=== PATIENT | male | born 1940 | race Caucasian/White ===

== ENCOUNTER → 2016-09-10 | Outpatient (CLI) | payer MEDICARE ==
[~2016-09-10] MED LIST: /HALO5TAB OR; /WARF3TA OR; /WARF5TA; /WARF5TA OR; /WARF5TA PO; ALTA5CAP; ALTA5CAP OR; ASPI81TA85 PO; ATEN50TA2 OR; BABY81CH; COLA100C2; GLUC500T; GLUC500T OR; LASI40TA; LASI40TA OR; MULTCAP PO; MVI PO; PERP4TAB6 PO; POTA10CA2 OR; POTA20TA; PRIL20CA; PRIL20CA OR; RISP3TAB18 PO; RISP4TAB33 PO; TENO50TA; THERGRAN; TRAZ50TA4 PO; WARF5TAB66 PO; WARF6TAB14 PO; coumadin
[2016-09-10 15:08] LABS: MEAN CORPUSCULAR HEMOGLOBIN 29.8 pg (27.0-33.0); MEAN CORPUSCULAR HGB CONC 33.1 g/dl (32.0-36.5)
[2016-09-10 15:19] LABS: ALBUMIN 3.6 GM/DL (3.2-5.2); CREATININE FOR GFR 1.39 MG/DL (0.70-1.30); GLOMERULAR FILTRATION RATE 53.2 (>42); MAGNESIUM LEVEL 1.6 MG/DL (1.8-2.4); PHOSPHORUS LEVEL 2.7 MG/DL (2.5-4.9); POTASSIUM SERUM 4.5 MEQ/L (3.5-5.1)
== END ==
LOC: M WUC 13:10
PROVIDERS: ATTEND Physician Assistant
DX: I50.32 Chronic diastolic (congestive) heart failure (principal); I48.3 Typical atrial flutter; I48.0 Paroxysmal atrial fibrillation; Z51.81 Encounter for therapeutic drug level monitoring; Z79.01 Long term (current) use of anticoagulants

== ENCOUNTER → 2016-09-10 | Outpatient (CLI) | payer MEDICARE ==
[2016-09-10 15:15] LABS: INR 1.75
== END ==
LOC: M WUC 13:06
PROVIDERS: ATTEND Internal Medicine Cardiovascular Disease
DX: I48.91 Unspecified atrial fibrillation (principal); Z51.81 Encounter for therapeutic drug level monitoring; Z79.01 Long term (current) use of anticoagulants

== ENCOUNTER → 2016-09-24 | Outpatient (CLI) | payer MEDICARE ==
[2016-09-24 19:10] LABS: INR 2.16
== END ==
LOC: M WUC 13:20
PROVIDERS: ATTEND Internal Medicine Cardiovascular Disease
DX: I48.91 Unspecified atrial fibrillation (principal); I48.92 Unspecified atrial flutter

== ENCOUNTER → 2016-10-25 | Outpatient (CLI) | payer MEDICARE ==
[2016-10-25 18:24] LABS: INR 2.34
== END ==
LOC: M WUC 16:00
PROVIDERS: ATTEND Nurse Practitioner Family
DX: I48.91 Unspecified atrial fibrillation (principal); I48.92 Unspecified atrial flutter

== ENCOUNTER → 2016-11-30 | Outpatient (CLI) | payer MEDICARE | LOC: M WUC 12:25 | PROVIDERS: ATTEND Nurse Practitioner Family | DX: I48.91 Unspecified atrial fibrillation (principal); I48.92 Unspecified atrial flutter ==

== ENCOUNTER → 2016-12-31 | Outpatient (CLI) | payer MEDICARE ==
[2016-12-31 16:50] LABS: INR 2.28
== END ==
LOC: M WUC 12:49
PROVIDERS: ATTEND Nurse Practitioner Family
DX: I48.91 Unspecified atrial fibrillation (principal); I48.92 Unspecified atrial flutter

== ENCOUNTER → 2017-01-29 | Outpatient (CLI) | payer MEDICARE ==
[2017-01-29 17:16] LABS: INR 1.94
== END ==
LOC: M WUC 14:18
PROVIDERS: ATTEND Nurse Practitioner Family
DX: I48.91 Unspecified atrial fibrillation (principal); I48.92 Unspecified atrial flutter

== ENCOUNTER 2017-01-31 15:41 | Emergency (ER) | payer MEDICARE ==
[~2017-01-31] VITALS: Ht 180.3 cm; Wt 109.9 kg
[~2017-01-31 15:41] MED LIST changes: -RISP3TAB18 PO; +RISP3TAB20 PO; +TRAZ50TA11 PO; -TRAZ50TA4 PO
[2017-01-31] MEDS ORDERED: IPRATROPIUM 0.5MG/ALBUTEROL 2.5MG INH SOL UD 3ML (DUONEB)(J7620) NEB PRN (16:45)
[2017-01-31 17:05] LABS: BASO % 0.6 % (0.0-1.0); EOS # 0.2 K/mm3 (0.0-0.50); EOS % 2.8 % (0.0-3.0); LARGE UNSTAINED CELL # 0.2 K/mm3 (0.0-0.4); LARGE UNSTAINED CELL % 2.5 % (0.0-4.0); LYMPH # 1.7 K/mm3 (1.5-4.5); MEAN CORPUSCULAR HEMOGLOBIN 30.6 pg (27.0-33.0); MEAN CORPUSCULAR HGB CONC 33.7 g/dl (32.0-36.5); MEAN CORPUSCULAR VOLUME 90.8 fl (80.0-96.0); MONO # 0.6 K/mm3 (0.0-0.8); NEUTROPHILS # 5.2 K/mm3 (1.8-7.7); NEUTROPHILS % 65.1 % (36.0-66.0); PLATELET COUNT, AUTOMATED 228 k/mm3 (150-450); RED CELL DISTRIBUTION WIDTH 12.5 % (11.5-14.5)
[2017-01-31 17:22] LABS: INR 2.73
[2017-01-31 17:30] LABS: ALBUMIN 2.9 GM/DL (3.2-5.2); ALBUMIN/GLOBULIN RATIO 0.64 (1.00-1.93); ALKALINE PHOSPHATASE 67 U/L (45-117); ALT/SGPT 22 U/L (12-78); ANION GAP 3 MEQ/L (8-16); AST/SGOT 11 U/L (15-37); BILIRUBIN,DIRECT 0.1 MG/DL (0.0-0.2); BILIRUBIN,TOTAL 0.5 MG/DL (0.2-1.0); BLOOD UREA NITROGEN 19 MG/DL (7-18); CALCIUM LEVEL 9.1 MG/DL (8.8-10.2); CARBON DIOXIDE LEVEL 28 MEQ/L (21-32); CHLORIDE LEVEL 109 MEQ/L (98-107); CREATININE FOR GFR 1.16 MG/DL (0.70-1.30); GLOMERULAR FILTRATION RATE > 60.0 (>42); GLUCOSE, FASTING 194 MG/DL (83-110); POTASSIUM SERUM 4.3 MEQ/L (3.5-5.1); SODIUM LEVEL 140 MEQ/L (136-145); TOTAL PROTEIN 7.4 GM/DL (6.4-8.2)
[2017-01-31] MEDS ORDERED: FUROSEMIDE 40 MG/4 ML VIAL (J1940) IV ONE (18:00)
[2017-01-31 19:43] VITALS: BP 138/78
--- NOTE | 2017-02-01 07:54 | REP ---
CHEST X-RAY: Two views. HISTORY: Dyspnea and cough. Comparison chest x-ray: June 29, 2010. FINDINGS: The patient is status post prior median sternotomy. There is a zone of linear opacity in the right base consistent with plate-like atelectasis. The pleural angles are sharp. No pleural effusion is seen. Pulmonary vasculature is cephalized. Heart is mildly prominent. IMPRESSION: Mild cardiomegaly. Right base plate-like atelectasis. Prior sternotomy. Signed by Rustam Barclay MD 02/01/2017 08:29 A
--- NOTE | 2017-02-02 08:55 | ECGEPIP ---
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
== END 2017-01-31 19:45 | disposition home or self-care (01) ==
LOC: M ED 17:01
DX: J20.9 Acute bronchitis, unspecified (principal); I50.32 Chronic diastolic (congestive) heart failure; R06.02 Shortness of breath; I51.7 Cardiomegaly; I48.91 Unspecified atrial fibrillation; E11.9 Type 2 diabetes mellitus without complications; Z95.2 Presence of prosthetic heart valve; Z79.82 Long term (current) use of aspirin; Z79.899 Other long term (current) drug therapy
CPT/HCPCS: 36415; 71020; 80048; 80076; 82550; 82553; 83605; 83880; 84443; 84484; 85025; 85610; 86140; 87040; 87486; 87581; 87633; 87798; 93005; 93041; 94760; 96374; 99284; J1940

== ENCOUNTER → 2017-02-25 | Outpatient (CLI) | payer MEDICARE ==
[2017-02-25 17:13] LABS: INR 3.78
== END ==
LOC: M WUC 15:08
PROVIDERS: ATTEND Nurse Practitioner Family
DX: I48.91 Unspecified atrial fibrillation (principal); I48.92 Unspecified atrial flutter

== ENCOUNTER → 2017-03-04 | Outpatient (CLI) | payer MEDICARE ==
[2017-03-04 19:49] LABS: MEAN CORPUSCULAR HEMOGLOBIN 29.9 pg (27.0-33.0); MEAN CORPUSCULAR HGB CONC 32.8 g/dl (32.0-36.5); MEAN CORPUSCULAR VOLUME 91.3 fl (80.0-96.0); RED CELL DISTRIBUTION WIDTH 12.7 % (11.5-14.5)
[2017-03-04 19:52] LABS: INR 2.63
[2017-03-04 21:11] LABS: ALBUMIN/GLOBULIN RATIO 0.77 (1.00-1.93); ALKALINE PHOSPHATASE 86 U/L (45-117); ALT/SGPT 19 U/L (12-78); ANION GAP 11 MEQ/L (8-16); AST/SGOT 10 U/L (15-37); BILIRUBIN,TOTAL 0.6 MG/DL (0.2-1.0); BLOOD UREA NITROGEN 22 MG/DL (7-18); CARBON DIOXIDE LEVEL 26 MEQ/L (21-32); CHLORIDE LEVEL 100 MEQ/L (98-107); CHOLESTEROL LEVEL 106 MG/DL (<200); CREATININE FOR GFR 1.17 MG/DL (0.70-1.30); GLOMERULAR FILTRATION RATE > 60.0 (>42); GLUCOSE, FASTING 209 MG/DL (83-110); MAGNESIUM LEVEL 1.8 MG/DL (1.8-2.4); POTASSIUM SERUM 4.2 MEQ/L (3.5-5.1); SODIUM LEVEL 137 MEQ/L (136-145); TOTAL PROTEIN 6.9 GM/DL (6.4-8.2); TRIGLYCERIDES LEVEL 155 MG/DL (<150)
== END ==
LOC: M WUC 15:27
PROVIDERS: ATTEND Physician Assistant
DX: I48.2 Chronic atrial fibrillation (principal); I50.32 Chronic diastolic (congestive) heart failure; E78.2 Mixed hyperlipidemia; I25.10 Atherosclerotic heart disease of native coronary artery without angina pectoris; I48.92 Unspecified atrial flutter

== ENCOUNTER → 2017-03-25 | Outpatient (CLI) | payer MEDICARE ==
[2017-03-25 17:25] LABS: INR 2.74
== END ==
LOC: M WUC 13:01
PROVIDERS: ATTEND Physician Assistant
DX: I48.91 Unspecified atrial fibrillation (principal); I48.92 Unspecified atrial flutter

== ENCOUNTER → 2017-04-26 | Outpatient (CLI) | payer MEDICARE ==
[2017-04-26 17:32] LABS: INR 2.42
== END ==
LOC: M WUC 13:52
PROVIDERS: ATTEND Physician Assistant
DX: I48.91 Unspecified atrial fibrillation (principal); I48.92 Unspecified atrial flutter

== ENCOUNTER → 2017-05-26 | Outpatient (CLI) | payer MEDICARE ==
[2017-05-26 18:38] LABS: INR 1.43
== END ==
LOC: M WUC 12:33
PROVIDERS: ATTEND Nurse Practitioner Family
DX: I48.91 Unspecified atrial fibrillation (principal); I48.92 Unspecified atrial flutter

== ENCOUNTER → 2017-06-24 | Outpatient (CLI) | payer MEDICARE ==
[2017-06-24 16:28] LABS: INR 2.06
== END ==
LOC: M WUC 13:15
PROVIDERS: ATTEND Physician Assistant
DX: I48.91 Unspecified atrial fibrillation (principal)

== ENCOUNTER → 2017-07-29 | Outpatient (CLI) | payer MEDICARE ==
[2017-07-29 17:15] LABS: INR 1.86
== END ==
LOC: M WUC 13:59
PROVIDERS: ATTEND Physician Assistant
DX: I48.91 Unspecified atrial fibrillation (principal)

== ENCOUNTER → 2017-08-19 | Outpatient (CLI) | payer MEDICARE ==
[2017-08-19 19:45] LABS: PROTHROMBIN TIME 24.3 SECONDS (12.4-14.5)
== END ==
LOC: M WUC 15:36
DX: I48.91 Unspecified atrial fibrillation (principal); I48.92 Unspecified atrial flutter
CPT/HCPCS: 85610

== ENCOUNTER → 2017-09-20 | Outpatient (CLI) | payer MEDICARE ==
[2017-09-20 17:13] LABS: INR 1.83; PROTHROMBIN TIME 21.7 SECONDS (12.4-14.5)
== END ==
LOC: M WUC 13:48
DX: I48.91 Unspecified atrial fibrillation (principal); I48.92 Unspecified atrial flutter
CPT/HCPCS: 85610

== ENCOUNTER → 2017-10-06 | Outpatient (CLI) | payer MEDICARE ==
[2017-10-06 16:43] LABS: INR 2.52; PROTHROMBIN TIME 28.2 SECONDS (12.4-14.5)
== END ==
LOC: M WUC 13:36
DX: I48.91 Unspecified atrial fibrillation (principal); I48.92 Unspecified atrial flutter
CPT/HCPCS: 85610

== ENCOUNTER → 2017-11-03 | Outpatient (CLI) | payer MEDICARE ==
[2017-11-03 14:20] LABS: INR 2.16; PROTHROMBIN TIME 24.8 SECONDS (12.4-14.5)
== END ==
LOC: M WUC 12:20
DX: I48.91 Unspecified atrial fibrillation (principal)
CPT/HCPCS: 85610

== ENCOUNTER → 2017-12-02 | Outpatient (CLI) | payer MEDICARE ==
[2017-12-02 16:44] LABS: INR 3.32; PROTHROMBIN TIME 35.3 SECONDS (12.4-14.5)
== END ==
LOC: M WUC 14:25
DX: Z51.81 Encounter for therapeutic drug level monitoring (principal); Z79.01 Long term (current) use of anticoagulants; I48.91 Unspecified atrial fibrillation; I48.92 Unspecified atrial flutter
CPT/HCPCS: 85610

== ENCOUNTER → 2017-12-21 | Outpatient (CLI) | payer MEDICARE ==
[2017-12-21 16:44] LABS: INR 2.96; PROTHROMBIN TIME 32.1 SECONDS (12.4-14.5)
== END ==
LOC: M WUC 13:42
DX: Z51.81 Encounter for therapeutic drug level monitoring (principal); Z79.01 Long term (current) use of anticoagulants; I48.91 Unspecified atrial fibrillation; I48.92 Unspecified atrial flutter
CPT/HCPCS: 85610

== ENCOUNTER 2018-03-07 15:06 | Inpatient (IN) | payer MEDICARE ==
[2018-03-07] MEDS: NS 1,000 ML IV ×3 (16:11→17:30)
[2018-03-07 16:18] LABS: BASO # 0.1 10^3/uL (0.0-0.2); BASO % 0.9 % (0.0-1.0); EOS # 0.3 10^3/uL (0.0-0.50); EOS % 3.6 % (0.0-3.0); HEMATOCRIT 36.5 % (42.0-52.0); IMMATURE GRANULOCYTE % 0.7 % (0-3.0); LYMPH # 2.1 10^3/uL (1.5-4.5); LYMPH % 23.1 % (24.0-44.0); MEAN CORPUSCULAR HEMOGLOBIN 30.2 pg (27.0-33.0); MEAN CORPUSCULAR HGB CONC 32.9 g/dl (32.0-36.5); MEAN CORPUSCULAR VOLUME 91.9 fl (80.0-96.0); MONO # 1.1 10^3/uL (0.0-0.8); MONO % 11.7 % (0.0-5.0); NEUTROPHILS # 5.5 10^3/uL (1.8-7.7); PLATELET COUNT, AUTOMATED 221 10^3/uL (150-450); RED BLOOD COUNT 3.97 10^6/uL (4.30-6.10); RED CELL DISTRIBUTION WIDTH 12.9 % (11.5-14.5); WHITE BLOOD COUNT 9.1 10^3/uL (4.0-10.0)
[2018-03-07 16:22] LABS: INR 2.45; PROTHROMBIN TIME 27.1 SECONDS (12.1-14.4)
[2018-03-07 16:24] LABS: PARTIAL THROMBOPLASTIN TIME 57.9 SECONDS (25.4-37.6)
[2018-03-07 16:32] LABS: LACTIC ACID SEPSIS PROTOCOL 3.7 MMOL/L (0.4-2.0)
[2018-03-07 16:33] LABS: ALBUMIN/GLOBULIN RATIO 0.79 (1.00-1.93); ALKALINE PHOSPHATASE 73 U/L (45-117); ALT/SGPT 24 U/L (12-78); ANION GAP 11 MEQ/L (8-16); AST/SGOT 13 U/L (7-37); BILIRUBIN,DIRECT 0.2 MG/DL (0.0-0.2); BILIRUBIN,TOTAL 0.7 MG/DL (0.2-1.0); BLOOD UREA NITROGEN 35 MG/DL (7-18); CALCIUM LEVEL 9.1 MG/DL (8.8-10.2); CARBON DIOXIDE LEVEL 27 MEQ/L (21-32); CHLORIDE LEVEL 105 MEQ/L (98-107); CPK CREATINE PHOSPHOKINASE 121 U/L (39-308); CREATININE FOR GFR 1.39 MG/DL (0.70-1.30); GLUCOSE, FASTING 203 MG/DL (70-100); POTASSIUM SERUM 4.3 MEQ/L (3.5-5.1); SALICYLATE LEVEL < 1.7 MG/DL (5.0-30.0); SODIUM LEVEL 143 MEQ/L (136-145); TOTAL PROTEIN 6.8 GM/DL (6.4-8.2); TROPONIN I < 0.02 NG/ML (< 0.10)
[2018-03-07 16:35] LABS: AMMONIA 19 uMOL/L (<32)
[2018-03-07 16:39] LABS: CK-MB VALUE MASS < 1.0 NG/ML (<3.6); MB/CK RELATIVE INDEX 0.82 (< OR =4)
[2018-03-07 16:43] LABS: ACETAMINOPHEN LEVEL < 2.0 UG/ML (10.0-30.0); ETHYL ALCOHOL (ETHANOL) < 0.003 % (0.000-0.010)
[2018-03-07 17:17] LABS: BEDSIDE GLUCOSE 175 MG/DL (83-110)
[2018-03-07 17:39] LABS: KETONE, URINE AUTO RFX NEGATIVE (NEGATIVE); LEUKOCYTE ESTERASE UR AUTO RFX NEGATIVE (NEGATIVE); MUCUS, URINE RFX SMALL (NEGATIVE); NITRITE, URINE AUTO RFX NEGATIVE (NEGATIVE); RBC, URINE AUTO RFX 1 /HPF (0-3); SPECIFIC GRAVITY UR AUTO RFX 1.013 (1.002-1.035); SQUAM EPITHELIAL CELL UR AURFX 0 /HPF (0-6); WBC, URINE AUTO RFX 0 /HPF (0-3)
[2018-03-07 17:50] LABS: AMPHETAMINES LEVEL URINE NEGATIVE (NEGATIVE); BARBITURATES URINE NEGATIVE (NEGATIVE); BENZODIAZEPINES URINE NEGATIVE (NEGATIVE); CANNABINOIDS URINE NEGATIVE (NEGATIVE); COCAINE METABOLITE URINE NEGATIVE (NEGATIVE); METHADONE URINE NEGATIVE (NEGATIVE); OPIATES URINE NEGATIVE (NEGATIVE); PHENCYCLIDINE URINE NEGATIVE (NEGATIVE)
[2018-03-07] MEDS ORDERED: ONDANSETRON 4MG/2ML VIAL (J2405) IV (18:45)
[2018-03-07] MEDS ORDERED: GLUCOSE 4 GM CHEW TABLET PO (18:45)
[2018-03-07] MEDS ORDERED: GLUCAGON FOR INJ 1 MG VIAL (J1610) SC (18:45)
[2018-03-07] MEDS ORDERED: ACETAMINOPHEN TAB 650MG DOSE (2X325MG) PO (18:45)
[2018-03-07] MEDS ORDERED: DEXTROSE 50% 50 ML SYRINGE IV (18:45)
[2018-03-07 19:39] LABS: CK-MB VALUE MASS < 1.0 NG/ML (<3.6); CPK CREATINE PHOSPHOKINASE 101 U/L (39-308); MB/CK RELATIVE INDEX 0.99 (< OR =4); TROPONIN I < 0.02 NG/ML (< 0.10)
[2018-03-07] MEDS: FUROSEMIDE 40 MG/4 ML VIAL (J1940) IV (20:04)
[2018-03-07] MEDS: HumaLOG INSULIN (NovoLOG) PER UNIT SC (21:00)
[2018-03-07 21:31] LABS: CREATININE,RANDOM URINE 66.3 MG/DL
[2018-03-07] MEDS: SODIUM CHLORIDE 0.9% 1000 ML IV ×2 (22:43→23:40)
[2018-03-07 23:21] LABS: BEDSIDE GLUCOSE 200 MG/DL (83-110)
[2018-03-07] MEDS: traZODone 50 MG TAB PO (23:40)
[2018-03-08] MEDS: FUROSEMIDE 40 MG/4 ML VIAL (J1940) IV
[2018-03-08] MEDS: risperiDONE 3 MG TAB PO ×3 (00:24→21:22)
[2018-03-08 00:55] LABS: LACTIC ACID SEPSIS PROTOCOL 5.4 MMOL/L (0.4-2.0)
[2018-03-08] MEDS: SODIUM CHLORIDE 0.9% 1000 ML IV (01:41)
[2018-03-08 02:59] LABS: HEMATOCRIT 36.4 % (42.0-52.0); HEMOGLOBIN 11.7 g/dl (13.5-17.5); MEAN CORPUSCULAR HEMOGLOBIN 29.8 pg (27.0-33.0); MEAN CORPUSCULAR HGB CONC 32.1 g/dl (32.0-36.5); MEAN CORPUSCULAR VOLUME 92.6 fl (80.0-96.0); PLATELET COUNT, AUTOMATED 216 10^3/uL (150-450); RED BLOOD COUNT 3.93 10^6/uL (4.30-6.10); RED CELL DISTRIBUTION WIDTH 12.9 % (11.5-14.5); WHITE BLOOD COUNT 10.1 10^3/uL (4.0-10.0)
[2018-03-08 03:08] LABS: INR 2.36; PROTHROMBIN TIME 26.3 SECONDS (12.1-14.4)
[2018-03-08 03:30] LABS: ANION GAP 13 MEQ/L (8-16); BLOOD UREA NITROGEN 30 MG/DL (7-18); CALCIUM LEVEL 8.2 MG/DL (8.8-10.2); CARBON DIOXIDE LEVEL 25 MEQ/L (21-32); CHLORIDE LEVEL 105 MEQ/L (98-107); CPK CREATINE PHOSPHOKINASE 108 U/L (39-308); CREATININE FOR GFR 1.41 MG/DL (0.70-1.30); FREE THYROXINE INDEX 3.6 % (1.4-3.8); GLOMERULAR FILTRATION RATE 52.2 (>42); GLUCOSE, FASTING 215 MG/DL (70-100); POTASSIUM SERUM 3.7 MEQ/L (3.5-5.1); SODIUM LEVEL 143 MEQ/L (136-145); T UPTAKE 38 % (33-40); THYROXINE (T4) 9.5 UG/DL (4.5-12.0); TROPONIN I < 0.02 NG/ML (< 0.10)
[2018-03-08 03:35] LABS: CK-MB VALUE MASS 1.1 NG/ML (<3.6); MB/CK RELATIVE INDEX 1.01 (< OR =4)
[2018-03-08] MEDS ORDERED: HEPARIN SOD (PORCINE) 5000 UNITS/ML VIAL SC (06:00)
[2018-03-08 06:37] LABS: BEDSIDE GLUCOSE 216 MG/DL (83-110)
[2018-03-08] MEDS: DIGOXIN INJ 0.5 MG/2 ML AMP (J1160) IV (07:43)
[2018-03-08] MEDS: ATENOLOL 50 MG TAB PO (07:55)
[2018-03-08] MEDS: OMEPRAZOLE 20 MG CAP PO (08:09)
[2018-03-08] MEDS: ASPIRIN 81 MG ENTERIC TAB PO (08:09)
[2018-03-08] MEDS: MULTIVITAMINS/MINERALS THERAP 1 TAB PO (08:09)
[2018-03-08] MEDS: HumaLOG INSULIN (NovoLOG) PER UNIT SC ×4 (08:09→20:50)
[2018-03-08] MEDS: POTASSIUM CHLORIDE 10 MEQ SR TABLET PO (08:09)
[2018-03-08] MEDS ORDERED: ATENOLOL 50 MG TAB PO (09:00)
[2018-03-08 11:03] LABS: CPK CREATINE PHOSPHOKINASE 78 U/L (39-308); TROPONIN I < 0.02 NG/ML (< 0.10)
[2018-03-08 11:04] LABS: CK-MB VALUE MASS < 1.0 NG/ML (<3.6); MB/CK RELATIVE INDEX 1.28 (< OR =4)
[2018-03-08 11:28] LABS: BEDSIDE GLUCOSE 199 MG/DL (83-110)
[2018-03-08] MEDS ORDERED: diltiaZEM 125 MG in NS 100 ML IV (11:30)
[2018-03-08] MEDS: METOPROLOL TART 25 MG TABLET PO ×2 (11:53→17:17)
[2018-03-08] MEDS ORDERED: METOPROLOL TART 25 MG TABLET PO (12:00)
[2018-03-08 14:05] LABS: MAGNESIUM LEVEL 1.5 MG/DL (1.8-2.4)
[2018-03-08 14:31] LABS: ABG BASE EXCESS -0.4 (-2.0-2.0); ABG HCO3 23.5 MEQ/L (22.0-26.0); ABG O2 SATURATION 95.4 % (95.0-99.0); ABG PARTIAL PRESSURE CO2 35.7 mmHg (35.0-45.0); ABG PARTIAL PRESSURE O2 75.1 mmHg (75.0-100.0); ABG STANDARD HCO3 24.2 MEQ/L (22.0-26.0); ABG TOTAL CO2 24.6 MEQ/L (23.0-31.0); ABG pH (ARTERIAL) 7.436 UNITS (7.350-7.450)
[2018-03-08] MEDS: FUROSEMIDE 100 MG/10 ML VIAL (J1940) IV (14:48)
[2018-03-08 15:02] LABS: AMMONIA 11 uMOL/L (<32)
[2018-03-08 15:05] LABS: LACTIC ACID SEPSIS PROTOCOL 1.9 MMOL/L (0.4-2.0)
[2018-03-08] MEDS: MAG SULF 1GM/100ML (MAG RUN) 1 GM in APPROPRIATE DILUENT 1 EA IV ×2 (15:16→17:08)
[2018-03-08 17:05] LABS: BEDSIDE GLUCOSE 187 MG/DL (83-110)
[2018-03-08] MEDS: WARFARIN SOD 4 MG TAB PO (17:15)
[2018-03-08 18:00] LABS: POTASSIUM SERUM 3.7 MEQ/L (3.5-5.1)
[2018-03-08 18:00] LABS: MAGNESIUM LEVEL 2.3 MG/DL (1.8-2.4)
[2018-03-08] MEDS: KCL 10MEQ/100ML SWI (KRUN) 10 MEQ in APPROPRIATE DILUENT 1 EA IV ×3 (18:07→19:33)
[2018-03-08] MEDS ORDERED: PILL CRUSHER/CUTTER 1 EACH XX (19:30)
[2018-03-08 20:38] LABS: BEDSIDE GLUCOSE 229 MG/DL (83-110)
[2018-03-08] MEDS: traZODone 50 MG TAB PO (21:22)
[2018-03-09] MEDS: METOPROLOL TART 25 MG TABLET PO ×4 (00:42→18:01)
[2018-03-09 05:54] LABS: HEMATOCRIT 34.5 % (42.0-52.0); HEMOGLOBIN 11.1 g/dl (13.5-17.5); MEAN CORPUSCULAR HEMOGLOBIN 29.4 pg (27.0-33.0); MEAN CORPUSCULAR HGB CONC 32.2 g/dl (32.0-36.5); MEAN CORPUSCULAR VOLUME 91.5 fl (80.0-96.0); PLATELET COUNT, AUTOMATED 214 10^3/uL (150-450); RED BLOOD COUNT 3.77 10^6/uL (4.30-6.10); RED CELL DISTRIBUTION WIDTH 12.8 % (11.5-14.5); WHITE BLOOD COUNT 8.8 10^3/uL (4.0-10.0)
[2018-03-09 06:08] LABS: INR 2.41; PROTHROMBIN TIME 26.7 SECONDS (12.1-14.4)
[2018-03-09 06:31] LABS: ANION GAP 8 MEQ/L (8-16); BLOOD UREA NITROGEN 31 MG/DL (7-18); CALCIUM LEVEL 8.8 MG/DL (8.8-10.2); CARBON DIOXIDE LEVEL 29 MEQ/L (21-32); CHLORIDE LEVEL 108 MEQ/L (98-107); DIGOXIN LEVEL 0.6 NG/ML (0.5-2.0); GLUCOSE, FASTING 197 MG/DL (70-100); POTASSIUM SERUM 4.1 MEQ/L (3.5-5.1); SODIUM LEVEL 145 MEQ/L (136-145)
[2018-03-09 07:44] LABS: MAGNESIUM LEVEL 2.2 MG/DL (1.8-2.4)
[2018-03-09] MEDS: OMEPRAZOLE 20 MG CAP PO (09:20)
[2018-03-09] MEDS: MULTIVITAMINS/MINERALS THERAP 1 TAB PO (09:20)
[2018-03-09] MEDS: risperiDONE 3 MG TAB PO ×2 (09:20→20:08)
[2018-03-09] MEDS: ASPIRIN 81 MG ENTERIC TAB PO (09:20)
[2018-03-09] MEDS: HumaLOG INSULIN (NovoLOG) PER UNIT SC ×4 (09:20→20:08)
[2018-03-09] MEDS: POTASSIUM CHLORIDE 10 MEQ SR TABLET PO (09:48)
[2018-03-09 11:57] LABS: BEDSIDE GLUCOSE 287 MG/DL (83-110)
[2018-03-09] MEDS: VANCOMYCIN HCL 1,000 MG, VIAL MATE ADAPTER 1 EACH in D5W 250 ML IV (12:01)
[2018-03-09] MEDS: FUROSEMIDE 40 MG/4 ML VIAL (J1940) IV ×2 (12:01→18:00)
[2018-03-09 17:25] LABS: BEDSIDE GLUCOSE 256 MG/DL (83-110)
[2018-03-09] MEDS: WARFARIN SOD 4 MG TAB PO (18:02)
[2018-03-09 20:05] LABS: BEDSIDE GLUCOSE 226 MG/DL (83-110)
[2018-03-09] MEDS: traZODone 50 MG TAB PO (20:08)
[2018-03-10] MEDS: METOPROLOL TART 25 MG TABLET PO ×5 (00:06→23:50)
[2018-03-10] MEDS: FUROSEMIDE 40 MG/4 ML VIAL (J1940) IV ×5 (00:07→23:52)
[2018-03-10 05:35] LABS: HEMATOCRIT 34.3 % (42.0-52.0); HEMOGLOBIN 11.1 g/dl (13.5-17.5); MEAN CORPUSCULAR HEMOGLOBIN 29.5 pg (27.0-33.0); MEAN CORPUSCULAR HGB CONC 32.4 g/dl (32.0-36.5); MEAN CORPUSCULAR VOLUME 91.2 fl (80.0-96.0); PLATELET COUNT, AUTOMATED 210 10^3/uL (150-450); RED BLOOD COUNT 3.76 10^6/uL (4.30-6.10); RED CELL DISTRIBUTION WIDTH 12.7 % (11.5-14.5); WHITE BLOOD COUNT 9.2 10^3/uL (4.0-10.0)
[2018-03-10 05:47] LABS: INR 2.02; PROTHROMBIN TIME 23.3 SECONDS (12.1-14.4)
[2018-03-10 05:56] LABS: ANION GAP 7 MEQ/L (8-16); BLOOD UREA NITROGEN 27 MG/DL (7-18); CALCIUM LEVEL 8.7 MG/DL (8.8-10.2); CARBON DIOXIDE LEVEL 30 MEQ/L (21-32); CHLORIDE LEVEL 107 MEQ/L (98-107); CREATININE FOR GFR 1.32 MG/DL (0.70-1.30); GLOMERULAR FILTRATION RATE 56.3 (>42); GLUCOSE, FASTING 192 MG/DL (70-100); POTASSIUM SERUM 3.6 MEQ/L (3.5-5.1); SODIUM LEVEL 144 MEQ/L (136-145)
[2018-03-10 07:38] LABS: MAGNESIUM LEVEL 1.8 MG/DL (1.8-2.4)
[2018-03-10] MEDS: HumaLOG INSULIN (NovoLOG) PER UNIT SC ×4 (08:16→21:24)
[2018-03-10] MEDS: LEVEMIR (INSULIN DETEMIR) 1 UNITS/0.01ML SC (08:17)
[2018-03-10] MEDS: ASPIRIN 81 MG ENTERIC TAB PO (08:17)
[2018-03-10] MEDS: MULTIVITAMINS/MINERALS THERAP 1 TAB PO (08:17)
[2018-03-10] MEDS: risperiDONE 3 MG TAB PO ×2 (08:19→21:23)
[2018-03-10] MEDS: POTASSIUM CHLORIDE 10 MEQ SR TABLET PO ×2 (08:19→21:23)
[2018-03-10] MEDS: OMEPRAZOLE 20 MG CAP PO (08:19)
[2018-03-10 12:17] LABS: BEDSIDE GLUCOSE 242 MG/DL (83-110)
[2018-03-10] MEDS: VANCOMYCIN HCL 1,000 MG, VIAL MATE ADAPTER 1 EACH in D5W 250 ML IV (13:44)
[2018-03-10 16:56] LABS: BEDSIDE GLUCOSE 175 MG/DL (83-110)
[2018-03-10] MEDS: WARFARIN SOD 4 MG TAB PO (17:16)
[2018-03-10 20:51] LABS: BEDSIDE GLUCOSE 258 MG/DL (83-110)
[2018-03-10] MEDS: traZODone 50 MG TAB PO (21:23)
[2018-03-11] MEDS: VANCOMYCIN HCL 1,000 MG, VIAL MATE ADAPTER 1 EACH in D5W 250 ML IV (01:28)
[2018-03-11] MEDS: FUROSEMIDE 40 MG/4 ML VIAL (J1940) IV ×2 (05:15→17:46)
[2018-03-11 05:54] LABS: HEMATOCRIT 31.2 % (42.0-52.0); HEMOGLOBIN 10.3 g/dl (13.5-17.5); MEAN CORPUSCULAR HEMOGLOBIN 29.3 pg (27.0-33.0); MEAN CORPUSCULAR VOLUME 88.9 fl (80.0-96.0); PLATELET COUNT, AUTOMATED 217 10^3/uL (150-450); RED BLOOD COUNT 3.51 10^6/uL (4.30-6.10); RED CELL DISTRIBUTION WIDTH 12.7 % (11.5-14.5); WHITE BLOOD COUNT 9.4 10^3/uL (4.0-10.0)
[2018-03-11 06:07] LABS: INR 1.81; PROTHROMBIN TIME 21.3 SECONDS (12.1-14.4)
[2018-03-11 06:10] LABS: ANION GAP 8 MEQ/L (8-16); BLOOD UREA NITROGEN 22 MG/DL (7-18); CALCIUM LEVEL 8.4 MG/DL (8.8-10.2); CARBON DIOXIDE LEVEL 30 MEQ/L (21-32); CHLORIDE LEVEL 105 MEQ/L (98-107); CREATININE FOR GFR 1.18 MG/DL (0.70-1.30); GLOMERULAR FILTRATION RATE > 60.0 (>42); GLUCOSE, FASTING 205 MG/DL (70-100); POTASSIUM SERUM 3.5 MEQ/L (3.5-5.1); SODIUM LEVEL 143 MEQ/L (136-145)
[2018-03-11] MEDS: METOPROLOL TART 25 MG TABLET PO ×3 (06:19→17:48)
[2018-03-11] MEDS: MULTIVITAMINS/MINERALS THERAP 1 TAB PO (08:24)
[2018-03-11] MEDS: risperiDONE 3 MG TAB PO ×2 (08:24→20:19)
[2018-03-11] MEDS: OMEPRAZOLE 20 MG CAP PO (08:24)
[2018-03-11] MEDS: ASPIRIN 81 MG ENTERIC TAB PO (08:24)
[2018-03-11] MEDS: POTASSIUM CHLORIDE 10 MEQ SR TABLET PO ×2 (08:25→20:20)
[2018-03-11] MEDS: HumaLOG INSULIN (NovoLOG) PER UNIT SC ×4 (08:26→21:25)
[2018-03-11 11:58] LABS: BEDSIDE GLUCOSE 212 MG/DL (83-110)
[2018-03-11 16:56] LABS: BEDSIDE GLUCOSE 221 MG/DL (83-110)
[2018-03-11] MEDS: WARFARIN SOD 4 MG TAB PO (17:47)
[2018-03-11] MEDS: traZODone 50 MG TAB PO (20:19)
[2018-03-11 21:16] LABS: BEDSIDE GLUCOSE 315 MG/DL (83-110)
[2018-03-12] MEDS: METOPROLOL TART 25 MG TABLET PO ×4 (00:24→17:26)
[2018-03-12 06:21] LABS: HEMATOCRIT 31.6 % (42.0-52.0); HEMOGLOBIN 10.4 g/dl (13.5-17.5); MEAN CORPUSCULAR HEMOGLOBIN 29.8 pg (27.0-33.0); MEAN CORPUSCULAR HGB CONC 32.9 g/dl (32.0-36.5); MEAN CORPUSCULAR VOLUME 90.5 fl (80.0-96.0); PLATELET COUNT, AUTOMATED 228 10^3/uL (150-450); RED BLOOD COUNT 3.49 10^6/uL (4.30-6.10); RED CELL DISTRIBUTION WIDTH 12.6 % (11.5-14.5); WHITE BLOOD COUNT 9.5 10^3/uL (4.0-10.0)
[2018-03-12 06:32] LABS: INR 1.89
[2018-03-12 06:37] LABS: ANION GAP 7 MEQ/L (8-16); BLOOD UREA NITROGEN 21 MG/DL (7-18); CALCIUM LEVEL 8.4 MG/DL (8.8-10.2); CARBON DIOXIDE LEVEL 28 MEQ/L (21-32); CHLORIDE LEVEL 105 MEQ/L (98-107); CREATININE FOR GFR 1.03 MG/DL (0.70-1.30); GLOMERULAR FILTRATION RATE > 60.0 (>42); GLUCOSE, FASTING 215 MG/DL (70-100); POTASSIUM SERUM 3.9 MEQ/L (3.5-5.1); SODIUM LEVEL 140 MEQ/L (136-145)
[2018-03-12] MEDS: HumaLOG INSULIN (NovoLOG) PER UNIT SC ×4 (07:44→20:46)
[2018-03-12 09:06] LABS: MAGNESIUM LEVEL 1.7 MG/DL (1.8-2.4)
[2018-03-12] MEDS: risperiDONE 3 MG TAB PO ×2 (09:19→20:47)
[2018-03-12] MEDS: OMEPRAZOLE 20 MG CAP PO (09:20)
[2018-03-12] MEDS: MULTIVITAMINS/MINERALS THERAP 1 TAB PO (09:20)
[2018-03-12] MEDS: ASPIRIN 81 MG ENTERIC TAB PO (09:20)
[2018-03-12] MEDS: POTASSIUM CHLORIDE 10 MEQ SR TABLET PO ×2 (09:20→20:46)
[2018-03-12] MEDS: FUROSEMIDE 40 MG/4 ML VIAL (J1940) IV ×2 (09:21→17:07)
[2018-03-12] MEDS: DIGOXIN 0.25 MG TAB PO (10:50)
[2018-03-12 12:02] LABS: BEDSIDE GLUCOSE 256 MG/DL (83-110)
[2018-03-12 16:50] LABS: BEDSIDE GLUCOSE 214 MG/DL (83-110)
[2018-03-12] MEDS: WARFARIN SOD 4 MG TAB PO (17:06)
[2018-03-12 20:27] LABS: BEDSIDE GLUCOSE 299 MG/DL (83-110)
[2018-03-12] MEDS: traZODone 50 MG TAB PO (20:47)
[2018-03-13] MEDS: METOPROLOL TART 25 MG TABLET PO ×5 (00:36→23:57)
[2018-03-13 05:59] LABS: HEMATOCRIT 31.2 % (42.0-52.0); HEMOGLOBIN 10.3 g/dl (13.5-17.5); MEAN CORPUSCULAR HEMOGLOBIN 30.1 pg (27.0-33.0); MEAN CORPUSCULAR VOLUME 91.2 fl (80.0-96.0); PLATELET COUNT, AUTOMATED 235 10^3/uL (150-450); RED BLOOD COUNT 3.42 10^6/uL (4.30-6.10); RED CELL DISTRIBUTION WIDTH 12.7 % (11.5-14.5); WHITE BLOOD COUNT 8.5 10^3/uL (4.0-10.0)
[2018-03-13 06:10] LABS: PROTHROMBIN TIME 24.9 SECONDS (12.1-14.4)
[2018-03-13 06:43] LABS: ANION GAP 9 MEQ/L (8-16); BLOOD UREA NITROGEN 18 MG/DL (7-18); CALCIUM LEVEL 8.8 MG/DL (8.8-10.2); CARBON DIOXIDE LEVEL 30 MEQ/L (21-32); CHLORIDE LEVEL 106 MEQ/L (98-107); CREATININE FOR GFR 1.15 MG/DL (0.70-1.30); GLOMERULAR FILTRATION RATE > 60.0 (>42); GLUCOSE, FASTING 215 MG/DL (70-100); MAGNESIUM LEVEL 1.7 MG/DL (1.8-2.4); POTASSIUM SERUM 3.9 MEQ/L (3.5-5.1); SODIUM LEVEL 145 MEQ/L (136-145)
[2018-03-13] MEDS: POTASSIUM CHLORIDE 10 MEQ SR TABLET PO ×3 (08:03→20:06)
[2018-03-13] MEDS: HumaLOG INSULIN (NovoLOG) PER UNIT SC ×4 (08:03→21:47)
[2018-03-13] MEDS: FUROSEMIDE 40 MG/4 ML VIAL (J1940) IV ×2 (08:03→17:55)
[2018-03-13] MEDS: OMEPRAZOLE 20 MG CAP PO ×2 (08:04→09:00)
[2018-03-13] MEDS: ASPIRIN 81 MG ENTERIC TAB PO ×2 (08:04→09:00)
[2018-03-13] MEDS: MULTIVITAMINS/MINERALS THERAP 1 TAB PO ×2 (08:04→09:00)
[2018-03-13] MEDS: risperiDONE 3 MG TAB PO ×3 (08:04→20:06)
[2018-03-13 12:29] LABS: BEDSIDE GLUCOSE 183 MG/DL (83-110)
[2018-03-13 16:56] LABS: BEDSIDE GLUCOSE 239 MG/DL (83-110)
[2018-03-13] MEDS: WARFARIN SOD 4 MG TAB PO (17:55)
[2018-03-13] MEDS: traZODone 50 MG TAB PO (20:07)
[2018-03-13 20:24] LABS: BEDSIDE GLUCOSE 268 MG/DL (83-110)
[2018-03-14] MEDS: METOPROLOL TART 25 MG TABLET PO (05:31)
[2018-03-14 06:10] LABS: HEMATOCRIT 32.3 % (42.0-52.0); HEMOGLOBIN 10.7 g/dl (13.5-17.5); MEAN CORPUSCULAR HEMOGLOBIN 30.1 pg (27.0-33.0); MEAN CORPUSCULAR HGB CONC 33.1 g/dl (32.0-36.5); MEAN CORPUSCULAR VOLUME 90.7 fl (80.0-96.0); PLATELET COUNT, AUTOMATED 248 10^3/uL (150-450); RED BLOOD COUNT 3.56 10^6/uL (4.30-6.10); RED CELL DISTRIBUTION WIDTH 12.4 % (11.5-14.5); WHITE BLOOD COUNT 9.1 10^3/uL (4.0-10.0)
[2018-03-14 06:21] LABS: ANION GAP 8 MEQ/L (8-16); BLOOD UREA NITROGEN 23 MG/DL (7-18); CALCIUM LEVEL 8.8 MG/DL (8.8-10.2); CARBON DIOXIDE LEVEL 29 MEQ/L (21-32); CHLORIDE LEVEL 106 MEQ/L (98-107); CREATININE FOR GFR 1.27 MG/DL (0.70-1.30); GLOMERULAR FILTRATION RATE 58.9 (>42); GLUCOSE, FASTING 204 MG/DL (70-100); SODIUM LEVEL 143 MEQ/L (136-145)
[2018-03-14 06:24] LABS: INR 2.33
[2018-03-14] MEDS: POTASSIUM CHLORIDE 10 MEQ SR TABLET PO ×2 (09:09→20:12)
[2018-03-14] MEDS: risperiDONE 3 MG TAB PO ×2 (09:09→20:12)
[2018-03-14] MEDS: OMEPRAZOLE 20 MG CAP PO (09:09)
[2018-03-14] MEDS: ASPIRIN 81 MG ENTERIC TAB PO (09:09)
[2018-03-14] MEDS: FUROSEMIDE 40 MG TAB PO (09:09)
[2018-03-14] MEDS: MULTIVITAMINS/MINERALS THERAP 1 TAB PO (09:10)
[2018-03-14] MEDS: HumaLOG INSULIN (NovoLOG) PER UNIT SC ×4 (09:10→20:13)
[2018-03-14] MEDS: ATENOLOL 25 MG TAB PO ×2 (09:17→20:11)
[2018-03-14 11:46] LABS: BEDSIDE GLUCOSE 318 MG/DL (83-110)
[2018-03-14 17:16] LABS: BEDSIDE GLUCOSE 228 MG/DL (83-110)
[2018-03-14] MEDS: WARFARIN SOD 4 MG TAB PO (17:36)
[2018-03-14 19:58] LABS: BEDSIDE GLUCOSE 252 MG/DL (83-110)
[2018-03-14] MEDS: traZODone 50 MG TAB PO (20:11)
[2018-03-15 05:35] LABS: BEDSIDE GLUCOSE 245 MG/DL (83-110)
[2018-03-15 05:59] LABS: MAGNESIUM LEVEL 2.1 MG/DL (1.8-2.4)
[2018-03-15] MEDS: HumaLOG INSULIN (NovoLOG) PER UNIT SC ×4 (08:26→20:00)
[2018-03-15] MEDS: ATENOLOL 25 MG TAB PO ×2 (09:00→20:41)
[2018-03-15] MEDS: ASPIRIN 81 MG ENTERIC TAB PO (10:26)
[2018-03-15] MEDS: MULTIVITAMINS/MINERALS THERAP 1 TAB PO (10:27)
[2018-03-15] MEDS: FUROSEMIDE 40 MG TAB PO (10:27)
[2018-03-15] MEDS: OMEPRAZOLE 20 MG CAP PO (10:28)
[2018-03-15] MEDS: POTASSIUM CHLORIDE 10 MEQ SR TABLET PO (10:29)
[2018-03-15] MEDS: risperiDONE 3 MG TAB PO ×2 (10:29→20:40)
[2018-03-15 12:18] LABS: BEDSIDE GLUCOSE 303 MG/DL (83-110)
[2018-03-15 16:55] LABS: BEDSIDE GLUCOSE 220 MG/DL (83-110)
[2018-03-15] MEDS: WARFARIN SOD 4 MG TAB PO (18:05)
[2018-03-15 19:51] LABS: BEDSIDE GLUCOSE 221 MG/DL (83-110)
[2018-03-15] MEDS: traZODone 50 MG TAB PO (20:40)
[2018-03-16 06:02] LABS: BEDSIDE GLUCOSE 200 MG/DL (83-110)
[2018-03-16 06:38] LABS: MAGNESIUM LEVEL 2.3 MG/DL (1.8-2.4)
[2018-03-16] MEDS: ATENOLOL 25 MG TAB PO ×2 (08:43→20:30)
[2018-03-16] MEDS: ASPIRIN 81 MG ENTERIC TAB PO (08:44)
[2018-03-16] MEDS: FUROSEMIDE 40 MG TAB PO (08:44)
[2018-03-16] MEDS: HumaLOG INSULIN (NovoLOG) PER UNIT SC ×4 (08:45→20:31)
[2018-03-16] MEDS: OMEPRAZOLE 20 MG CAP PO (08:46)
[2018-03-16] MEDS: risperiDONE 3 MG TAB PO ×2 (08:46→20:30)
[2018-03-16] MEDS: MULTIVITAMINS/MINERALS THERAP 1 TAB PO (08:46)
[2018-03-16 11:09] LABS: PROTHROMBIN TIME 22.1 SECONDS (12.1-14.4)
[2018-03-16 11:39] LABS: ANION GAP 10 MEQ/L (8-16); BLOOD UREA NITROGEN 24 MG/DL (7-18); CALCIUM LEVEL 8.6 MG/DL (8.8-10.2); CARBON DIOXIDE LEVEL 27 MEQ/L (21-32); CHLORIDE LEVEL 105 MEQ/L (98-107); CREATININE FOR GFR 1.22 MG/DL (0.70-1.30); GLOMERULAR FILTRATION RATE > 60.0 (>42); GLUCOSE, FASTING 265 MG/DL (70-100); POTASSIUM SERUM 4.6 MEQ/L (3.5-5.1); SODIUM LEVEL 142 MEQ/L (136-145)
[2018-03-16 12:12] LABS: BEDSIDE GLUCOSE 250 MG/DL (83-110)
[2018-03-16] MEDS: POTASSIUM CHLORIDE 10 MEQ SR TABLET PO (12:56)
[2018-03-16 16:41] LABS: BEDSIDE GLUCOSE 256 MG/DL (83-110)
[2018-03-16] MEDS: WARFARIN SOD 4 MG TAB PO (18:21)
[2018-03-16 19:53] LABS: BEDSIDE GLUCOSE 292 MG/DL (83-110)
[2018-03-16] MEDS: traZODone 50 MG TAB PO (20:48)
[2018-03-17 06:00] LABS: BEDSIDE GLUCOSE 219 MG/DL (83-110)
[2018-03-17 06:37] LABS: MAGNESIUM LEVEL 2.3 MG/DL (1.8-2.4)
[2018-03-17] MEDS: OMEPRAZOLE 20 MG CAP PO (08:36)
[2018-03-17] MEDS: HumaLOG INSULIN (NovoLOG) PER UNIT SC (08:36)
[2018-03-17] MEDS: MULTIVITAMINS/MINERALS THERAP 1 TAB PO (08:36)
[2018-03-17] MEDS: ASPIRIN 81 MG ENTERIC TAB PO (08:37)
[2018-03-17] MEDS: POTASSIUM CHLORIDE 10 MEQ SR TABLET PO (08:37)
[2018-03-17] MEDS: risperiDONE 3 MG TAB PO (08:37)
[2018-03-17] MEDS: ATENOLOL 25 MG TAB PO (08:40)
[2018-03-17] MEDS: FUROSEMIDE 40 MG TAB PO (08:45)
== END 2018-03-17 11:12 | DRG 308 ==
LOC: M MSPAV 03-10 16:30 → M ED 15:06 → M ED INP 18:44 → M PCU 20:57
DX: I48.91 Unspecified atrial fibrillation (principal); I50.33 Acute on chronic diastolic (congestive) heart failure; E87.2 Acidosis; N17.9 Acute kidney failure, unspecified; E11.9 Type 2 diabetes mellitus without complications; F20.9 Schizophrenia, unspecified; F03.90 Unspecified dementia, unspecified severity, without behavioral disturbance, psychotic disturbance, mood disturbance, and anxiety; I25.10 Atherosclerotic heart disease of native coronary artery without angina pectoris; E78.5 Hyperlipidemia, unspecified; I11.0 Hypertensive heart disease with heart failure; E87.6 Hypokalemia; E83.42 Hypomagnesemia; R29.6 Repeated falls; E86.0 Dehydration; Z79.01 Long term (current) use of anticoagulants; Z79.82 Long term (current) use of aspirin; Z79.84 Long term (current) use of oral hypoglycemic drugs; Z79.899 Other long term (current) drug therapy; Z95.4 Presence of other heart-valve replacement

== ENCOUNTER → 2018-03-18 | Outpatient (REF) ==
[2018-03-18 07:50] LABS: HEMATOCRIT 34.8 % (42.0-52.0); HEMOGLOBIN 11.2 g/dl (13.5-17.5); MEAN CORPUSCULAR HEMOGLOBIN 29.6 pg (27.0-33.0); MEAN CORPUSCULAR HGB CONC 32.2 g/dl (32.0-36.5); MEAN CORPUSCULAR VOLUME 91.8 fl (80.0-96.0); PLATELET COUNT, AUTOMATED 322 10^3/uL (150-450); RED BLOOD COUNT 3.79 10^6/uL (4.30-6.10); RED CELL DISTRIBUTION WIDTH 12.6 % (11.5-14.5); WHITE BLOOD COUNT 9.8 10^3/uL (4.0-10.0)
[2018-03-18 08:05] LABS: INR 2.08; PROTHROMBIN TIME 23.8 SECONDS (12.1-14.4)
[2018-03-18 08:14] LABS: ESTIMATED AVERAGE GLUCOSE 186 MG/DL (60-110); HEMOGLOBIN A1c 8.1 %
[2018-03-18 08:25] LABS: FREE T4 1.18 NG/DL (0.76-1.46)
== END ==
LOC: SKLAB5 07:55
DX: E11.9 Type 2 diabetes mellitus without complications (principal); R94.6 Abnormal results of thyroid function studies

== ENCOUNTER → 2018-03-21 | Outpatient (REF) ==
[2018-03-21 17:37] LABS: ANION GAP 12 MEQ/L (8-16); BLOOD UREA NITROGEN 35 MG/DL (7-18); CALCIUM LEVEL 8.9 MG/DL (8.8-10.2); CARBON DIOXIDE LEVEL 24 MEQ/L (21-32); CHLORIDE LEVEL 103 MEQ/L (98-107); CREATININE FOR GFR 1.58 MG/DL (0.70-1.30); GLOMERULAR FILTRATION RATE 45.7 (>42); GLUCOSE, FASTING 213 MG/DL (70-100); POTASSIUM SERUM 4.3 MEQ/L (3.5-5.1); SODIUM LEVEL 139 MEQ/L (136-145)
== END ==
LOC: SKLAB5 15:55
DX: I50.9 Heart failure, unspecified (principal)

== ENCOUNTER → 2018-03-22 | Outpatient (REF) ==
[2018-03-22 09:43] LABS: HEMATOCRIT 32.9 % (42.0-52.0); HEMOGLOBIN 10.9 g/dl (13.5-17.5); MEAN CORPUSCULAR HEMOGLOBIN 29.6 pg (27.0-33.0); MEAN CORPUSCULAR HGB CONC 33.1 g/dl (32.0-36.5); MEAN CORPUSCULAR VOLUME 89.4 fl (80.0-96.0); PLATELET COUNT, AUTOMATED 341 10^3/uL (150-450); RED BLOOD COUNT 3.68 10^6/uL (4.30-6.10); RED CELL DISTRIBUTION WIDTH 12.6 % (11.5-14.5); WHITE BLOOD COUNT 10.3 10^3/uL (4.0-10.0)
[2018-03-22 10:16] LABS: INR 2.02; PROTHROMBIN TIME 23.2 SECONDS (12.1-14.4)
== END ==
LOC: SKLAB5 14:36
DX: I48.91 Unspecified atrial fibrillation (principal)

== ENCOUNTER → 2018-03-23 | Outpatient (REF) | payer MEDICARE ==
[2018-03-23 07:59] LABS: ANION GAP 8 MEQ/L (8-16); BLOOD UREA NITROGEN 24 MG/DL (7-18); CALCIUM LEVEL 9.3 MG/DL (8.8-10.2); CARBON DIOXIDE LEVEL 27 MEQ/L (21-32); CHLORIDE LEVEL 105 MEQ/L (98-107); CREATININE FOR GFR 1.29 MG/DL (0.70-1.30); GLOMERULAR FILTRATION RATE 57.8 (>42); GLUCOSE, FASTING 214 MG/DL (70-100); POTASSIUM SERUM 4.5 MEQ/L (3.5-5.1); SODIUM LEVEL 140 MEQ/L (136-145)
== END ==
LOC: SKLAB5 08:00
DX: I48.91 Unspecified atrial fibrillation (principal)
CPT/HCPCS: 36415

== ENCOUNTER → 2018-03-29 | Outpatient (REF) ==
[2018-03-29 08:10] LABS: HEMATOCRIT 33.4 % (42.0-52.0); HEMOGLOBIN 10.7 g/dl (13.5-17.5); MEAN CORPUSCULAR HEMOGLOBIN 29.2 pg (27.0-33.0); MEAN CORPUSCULAR VOLUME 91.3 fl (80.0-96.0); PLATELET COUNT, AUTOMATED 279 10^3/uL (150-450); RED BLOOD COUNT 3.66 10^6/uL (4.30-6.10); RED CELL DISTRIBUTION WIDTH 12.7 % (11.5-14.5); WHITE BLOOD COUNT 9.3 10^3/uL (4.0-10.0)
[2018-03-29 08:22] LABS: INR 1.58; PROTHROMBIN TIME 19.1 SECONDS (12.1-14.4)
== END ==
LOC: SKLAB5 14:37
DX: I48.91 Unspecified atrial fibrillation (principal)

== ENCOUNTER → 2018-04-05 | Outpatient (REF) ==
[2018-04-05 08:17] LABS: INR 1.44; PROTHROMBIN TIME 17.7 SECONDS (12.1-14.4)
== END ==
LOC: SKLAB5 10:54
DX: Z79.01 Long term (current) use of anticoagulants (principal)

== ENCOUNTER → 2018-04-08 | Outpatient (REF) | LOC: SKLAB5 08:19 | DX: R33.9 Retention of urine, unspecified (principal) ==

== ENCOUNTER → 2018-04-12 | Outpatient (REF) ==
[2018-04-12 07:03] LABS: INR 1.55; PROTHROMBIN TIME 18.9 SECONDS (12.1-14.4)
== END ==
LOC: SKLAB5 12:20
DX: I48.91 Unspecified atrial fibrillation (principal)

== ENCOUNTER → 2018-04-13 | Outpatient (REF) | LOC: SKLAB5 12:21 | DX: R39.89 Other symptoms and signs involving the genitourinary system (principal) ==

== ENCOUNTER → 2018-04-14 | Outpatient (REF) ==
[2018-04-14 09:28] LABS: INR 1.44; PROTHROMBIN TIME 17.8 SECONDS (12.1-14.4)
== END ==
LOC: SKLAB5 08:44
DX: I48.91 Unspecified atrial fibrillation (principal)

== ENCOUNTER → 2018-04-28 | Outpatient (REF) | payer MEDICARE ==
[2018-04-28 12:33] LABS: ANION GAP 8 MEQ/L (8-16); BLOOD UREA NITROGEN 22 MG/DL (7-18); CALCIUM LEVEL 9.1 MG/DL (8.8-10.2); CARBON DIOXIDE LEVEL 27 MEQ/L (21-32); CHLORIDE LEVEL 105 MEQ/L (98-107); CREATININE FOR GFR 1.47 MG/DL (0.70-1.30); GLOMERULAR FILTRATION RATE 49.7 (>42); GLUCOSE, FASTING 164 MG/DL (70-100); POTASSIUM SERUM 4.7 MEQ/L (3.5-5.1); SODIUM LEVEL 140 MEQ/L (136-145)
== END ==
LOC: M SHH 11:31
DX: N18.3 Chronic kidney disease, stage 3 (moderate) (principal)
CPT/HCPCS: 80048

== ENCOUNTER → 2018-05-04 | Outpatient (REF) | payer MEDICARE ==
[2018-05-04 11:01] LABS: INR 3.34; PROTHROMBIN TIME 34.6 SECONDS (12.1-14.4)
== END ==
LOC: M SHH 10:35
DX: I48.91 Unspecified atrial fibrillation (principal); I48.92 Unspecified atrial flutter
CPT/HCPCS: 85610

== ENCOUNTER → 2018-05-09 | Outpatient (REF) | payer MEDICARE ==
[2018-05-09 12:09] LABS: ANION GAP 8 MEQ/L (8-16); BLOOD UREA NITROGEN 17 MG/DL (7-18); CALCIUM LEVEL 8.7 MG/DL (8.8-10.2); CARBON DIOXIDE LEVEL 27 MEQ/L (21-32); CHLORIDE LEVEL 107 MEQ/L (98-107); CREATININE FOR GFR 1.08 MG/DL (0.70-1.30); GLOMERULAR FILTRATION RATE > 60.0 (>42); GLUCOSE, FASTING 160 MG/DL (70-100); POTASSIUM SERUM 4.5 MEQ/L (3.5-5.1); SODIUM LEVEL 142 MEQ/L (136-145)
== END ==
LOC: M SHH 11:27
DX: I73.9 Peripheral vascular disease, unspecified (principal)
CPT/HCPCS: 80048

== ENCOUNTER → 2018-05-12 | Outpatient (REF) | payer MEDICARE | LOC: M SMT 17:09 | DX: N39.0 Urinary tract infection, site not specified (principal) | CPT/HCPCS: 87086 ==

== ENCOUNTER 2018-05-15 20:03 | Emergency (ER) | payer MEDICARE ==
[2018-05-15 20:56] LABS: HEMATOCRIT 36.1 % (42.0-52.0); HEMOGLOBIN 11.4 g/dl (13.5-17.5); MEAN CORPUSCULAR HEMOGLOBIN 28.3 pg (27.0-33.0); MEAN CORPUSCULAR HGB CONC 31.6 g/dl (32.0-36.5); MEAN CORPUSCULAR VOLUME 89.6 fl (80.0-96.0); PLATELET COUNT, AUTOMATED 230 10^3/uL (150-450); RED BLOOD COUNT 4.03 10^6/uL (4.30-6.10); RED CELL DISTRIBUTION WIDTH 13.2 % (11.5-14.5); WHITE BLOOD COUNT 9.7 10^3/uL (4.0-10.0)
[2018-05-15 21:07] LABS: PROTHROMBIN TIME 38.4 SECONDS (12.1-14.4)
[2018-05-15 21:46] LABS: PROTEIN, URINE MANUAL REFLEX 2+ mg/dL (NEGATIVE)
[2018-05-15 21:47] LABS: BILIRUBIN, URINE MANUAL NEGATIVE (NEGATIVE); BLOOD URINE MANUAL RFX POSITIVE (NEGATIVE); GLUCOSE, URINE (UA) MANUAL TRACE(50 MG/DL) mg/dL (NEGATIVE); KETONE, URINE MANUAL NEGATIVE (NEGATIVE); NITRITE, URINE MANUAL RFX NEGATIVE (NEGATIVE); UROBILINOGEN, URINE MANUAL NORMAL (NORMAL)
[2018-05-15 21:48] LABS: MICROSCOPIC INDICATED? RFX YES (NO)
[2018-05-15 21:54] LABS: RBC, URINE 30-40 /hpf (0-3)
[2018-05-15 21:57] LABS: SQUAMOUS EPITHELIAL CELL URINE NONE SEEN /hpf (SMALL AMT)
[2018-05-15 21:59] LABS: CALCIUM OXALATE CRYSTALS,URINE SMALL AMOUNT /hpf
[2018-05-15 22:02] LABS: AMORPHOUS SEDIMENT, URINE MOD AMOUNT (NEGATIVE); BACTERIA, URINE NONE SEEN; HYALINE CAST, URINE 0-1 /lpf (0-1); MUCUS, URINE SMALL AMOUNT (NEGATIVE); RENAL EPITHELIAL CELLS, URINE SMALL AMOUNT /hpf; TRANSITIONAL EPI CELLS, URINE SMALL AMOUNT /hpf
[2018-05-15 22:04] LABS: MICROSCOPIC EXAM PERFORMED
== END 2018-05-15 22:20 | disposition home or self-care (01) ==
LOC: M ED 20:03
DX: R31.9 Hematuria, unspecified (principal); F03.90 Unspecified dementia, unspecified severity, without behavioral disturbance, psychotic disturbance, mood disturbance, and anxiety; E11.9 Type 2 diabetes mellitus without complications; I10 Essential (primary) hypertension; Z95.1 Presence of aortocoronary bypass graft; Z79.899 Other long term (current) drug therapy; Z79.82 Long term (current) use of aspirin; Z79.84 Long term (current) use of oral hypoglycemic drugs; Z79.01 Long term (current) use of anticoagulants
CPT/HCPCS: 85610

== ENCOUNTER → 2018-06-01 | Outpatient (REF) | payer MEDICARE ==
[2018-06-01 13:15] LABS: INR 3.37; PROTHROMBIN TIME 34.9 SECONDS (12.1-14.4)
== END ==
LOC: M LAB REF 12:12
DX: I48.91 Unspecified atrial fibrillation (principal); I48.92 Unspecified atrial flutter; Z51.81 Encounter for therapeutic drug level monitoring; Z79.01 Long term (current) use of anticoagulants
CPT/HCPCS: 85610

== ENCOUNTER 2018-07-11 13:28 | Emergency (ER) | payer MEDICARE ==
[2018-07-11 14:35] LABS: KETONE, URINE AUTO RFX NEGATIVE (NEGATIVE); LEUKOCYTE ESTERASE UR AUTO RFX 3+ (NEGATIVE); MUCUS, URINE RFX SMALL (NEGATIVE); NITRITE, URINE AUTO RFX POSITIVE (NEGATIVE); RBC, URINE AUTO RFX 86 /HPF (0-3); SQUAM EPITHELIAL CELL UR AURFX 0 /HPF (0-6); WBC, URINE AUTO RFX TNTC /HPF (0-3)
[2018-07-11] MEDS: NITROFURANTOIN (MACROBID) 100 MG CAP PO (15:12)
== END 2018-07-11 16:08 | disposition home or self-care (01) ==
LOC: M ED 13:28
DX: N39.0 Urinary tract infection, site not specified (principal); T83.098A Other mechanical complication of other urinary catheter, initial encounter; X58.XXXA Exposure to other specified factors, initial encounter; Y92.89 Other specified places as the place of occurrence of the external cause; E11.9 Type 2 diabetes mellitus without complications; I25.10 Atherosclerotic heart disease of native coronary artery without angina pectoris; I25.2 Old myocardial infarction; F03.90 Unspecified dementia, unspecified severity, without behavioral disturbance, psychotic disturbance, mood disturbance, and anxiety; K21.9 Gastro-esophageal reflux disease without esophagitis; F20.9 Schizophrenia, unspecified; F41.9 Anxiety disorder, unspecified; I51.7 Cardiomegaly; N40.0 Benign prostatic hyperplasia without lower urinary tract symptoms; Z79.899 Other long term (current) drug therapy; Z79.82 Long term (current) use of aspirin; Z79.84 Long term (current) use of oral hypoglycemic drugs; Z79.01 Long term (current) use of anticoagulants
CPT/HCPCS: 81001

== ENCOUNTER → 2018-07-18 | Outpatient (REF) | payer MEDICARE ==
[2018-07-18 14:56] LABS: HEMOGLOBIN 12.2 g/dl (13.5-17.5); MEAN CORPUSCULAR HEMOGLOBIN 27.4 pg (27.0-33.0); MEAN CORPUSCULAR HGB CONC 31.3 g/dl (32.0-36.5); MEAN CORPUSCULAR VOLUME 87.4 fl (80.0-96.0); PLATELET COUNT, AUTOMATED 266 10^3/uL (150-450); RED BLOOD COUNT 4.46 10^6/uL (4.30-6.10); RED CELL DISTRIBUTION WIDTH 13.6 % (11.5-14.5); WHITE BLOOD COUNT 7.8 10^3/uL (4.0-10.0)
[2018-07-18 15:10] LABS: INR 3.26
[2018-07-18 15:11] LABS: PARTIAL THROMBOPLASTIN TIME 42.2 SECONDS (25.4-37.6)
[2018-07-18 15:19] LABS: ANION GAP 9 MEQ/L (8-16); BLOOD UREA NITROGEN 14 MG/DL (7-18); CALCIUM LEVEL 8.7 MG/DL (8.8-10.2); CARBON DIOXIDE LEVEL 28 MEQ/L (21-32); CHLORIDE LEVEL 106 MEQ/L (98-107); CREATININE FOR GFR 1.02 MG/DL (0.70-1.30); GLOMERULAR FILTRATION RATE > 60.0 (>42); GLUCOSE, FASTING 234 MG/DL (70-100); POTASSIUM SERUM 3.8 MEQ/L (3.5-5.1); SODIUM LEVEL 143 MEQ/L (136-145)
== END ==
LOC: M SMT 14:28
DX: Z01.818 Encounter for other preprocedural examination (principal); R33.9 Retention of urine, unspecified; I48.91 Unspecified atrial fibrillation; I48.92 Unspecified atrial flutter; Z79.01 Long term (current) use of anticoagulants
CPT/HCPCS: 80048

== ENCOUNTER → 2018-08-01 | Outpatient (REF) | payer MEDICARE ==
[~2018-08-01] MED LIST changes: -ALTA5CAP OR; +ALTA5CAP PO; +ATEN25TA PO; -ATEN50TA2 OR; +ATEN50TA2 PO; +CIPR-249 PO; +COUM6TAB PO; +CVS20TAB PO; +FLOM0.4C39 PO; +GLIP5TAB8 PO; -GLUC500T OR; +GLUC500T PO; +K-TA1TAB PO; -LASI40TA OR; +LASI40TA PO; +LIPI20TA PO; +MACR100C43 PO; +METF-839 PO; -POTA10CA2 OR; +POTA10CA2 PO; -PRIL20CA OR; +PRIL20CA PO; +TRAZ-160 PO; -TRAZ50TA11 PO; +WARF-20 PO
[2018-08-01 11:26] LABS: INR 2.69; PROTHROMBIN TIME 29.2 SECONDS (12.1-14.4)
== END ==
LOC: M SHH 10:47
PROVIDERS: ATTEND Physician Assistant
DX: I48.91 Unspecified atrial fibrillation (principal); I48.92 Unspecified atrial flutter

== ENCOUNTER → 2018-08-18 | Outpatient (REF) | payer MEDICARE ==
[~2018-08-18] MED LIST changes: +LASI40TA9 PO
== END ==
LOC: M LAB REF 14:33
PROVIDERS: ATTEND Urology Pediatric Urology
DX: N39.0 Urinary tract infection, site not specified (principal)

== ENCOUNTER 2018-08-22 11:29 | Day surgery (SDC) | payer MEDICARE ==
[~2018-08-22] VITALS: Ht 180.3 cm; Wt 99.8 kg
[~2018-08-22 11:29] MED LIST changes: +LR 1,000 ML IV ONE
[2018-08-22 12:09] LABS: INR 1.19; PROTHROMBIN TIME 15.3 SECONDS (12.1-14.4)
[2018-08-22] MEDS ORDERED: ROCURONIUM BROMIDE 50 MG/5 ML VIAL As Ordered ONE (12:26)
[2018-08-22] MEDS ORDERED: LIDOCAINE 2% INJ 100 MG/5 ML SDV (FOR ANES.) As Ordered ONE (12:26)
[2018-08-22] MEDS ORDERED: PROPOFOL 200 MG/20 ML VIAL As Ordered ONE (12:26)
[2018-08-22] MEDS ORDERED: MIDAZOLAM INJ 2 MG/2 ML VIAL (J2250) As Ordered ONE (12:28)
[2018-08-22] MEDS ORDERED: fentaNYL 100 MCG/2 ML INJECTION (J3010) As Ordered ONE (12:28)
[2018-08-22] MEDS ORDERED: VANCOMYCIN 1000 MG/20 ML VIAL (J3370) As Ordered ONE (12:34)
[2018-08-22] MEDS ORDERED: GENTAMICIN 80 MG in APPROPRIATE DILUENT 1 EA IV ONE (13:00)
[2018-08-22] MEDS ORDERED: VANCOMYCIN HCL 1,000 MG, VIAL MATE ADAPTER 1 EACH in D5W 250 ML IV ONE (13:00)
[2018-08-22] MEDS ORDERED: LIDOCAINE 1% SDV INJ 30 ML VIAL As Ordered ONE (13:42)
[2018-08-22] MEDS ORDERED: BUPIVACAINE HCL 0.25% 30 ML VIAL As Ordered ONE (13:42)
[2018-08-22] MEDS ORDERED: HYDROmorphone HCL 2 MG/ML 1ML VIAL (J1170) As Ordered ONE (16:02)
[2018-08-22] MEDS ORDERED: PHENYLephrine HCL 500 MCG/5 ML (100MCG/ML) SYRINGE (J2370) As Ordered ONE (16:03)
[2018-08-22] MEDS ORDERED: dexameTHASONE 4 MG/ML 1ML VIAL (J1100) As Ordered ONE (16:07)
[2018-08-22] MEDS ORDERED: ONDANSETRON 4MG/2ML VIAL (J2405) As Ordered ONE (16:07)
[2018-08-22] MEDS ORDERED: SUGAMMADEX SODIUM 500 MG/5 ML VIAL (BRIDION) As Ordered ONE (17:12)
--- NOTE | 2018-08-22 17:41 | ROOPDOC ---
[facility] Report Of Operation Report of Operation DATE OF PROCEDURE: 08/22/2018 PREPROCEDURE DIAGNOSIS: Urinary retention. POSTPROCEDURE DIAGNOSIS: Urinary retention. PROCEDURE: Open cystotomy with suprapubic catheter placement. SURGEON: Sheba Pereira MD RECEIVER STOCKER: None ANESTHESIA: General. OPERATIVE INDICATIONS: This is a 78-year-old male with urinary retention managed with chronic catheter placement. He was brought to the operating room today for above-listed procedure. DESCRIPTION OF PROCEDURE: The patient was brought to the operating room and general anesthesia was induced. Prophylactic antibiotics were infused. He was then placed in supine position and prepped and draped in the usual sterile fashion. At this point, an 18-[place] Hathaway catheter was inserted into the urethra and advanced to the bladder. A balloon was filled with sterile water and then the catheter was plugged. I then made an approximately 6-7 cm suprapubic incision. We then dissected down through the subcutaneous tissues until we got to the fascia. The fascia was then opened with electrocautery and the bellies of the rectus muscle were gently spread. We then utilized the urethral catheter to inflated the bladder with appro ximately 200 mL of sterile saline. We then dissected down through the perivesical fat until we saw what we thought was the bladder. A spinal needle was utilized to aspirate this and it was cleared of aspirating the saline confirming that it was the bladder. At this point, a #3-0 chromic suture was used to place a pursestring stitch at the dome of the bladder. Cystotomy was then made with electrocautery and then saline quickly flowed out. I then inserted a 20-[place] catheter in the center of our cystotomy and filled the balloon with 7 mL of sterile water. I then tied the pursestring suture around the catheter. Once this was done, we then thoroughly irrigated. The fascia was then closed with several [id number] #1 non-looped PDS sutures. Once the fascia was closed, the subcutaneous tissues were reapproximated with interrupted #3-0 Vicryl sutures. The skin was then closed with a running #4-0 Monocryl suture. This was done around the suprapubic catheter. Once that was done, I then placed two separate Prolene stitches around the suprapubic catheter in through the skin to help further secure it. Next, local anesthetic was applied and then Dermabond was applied. Dressings were applied. The suprapubic catheter was then connected to gravity drainage and the urethral catheter was removed. This marked conclusion of the procedure. The patient was then awakened from anesthesia and transported to the recovery room in stable condition. Estimated Blood Loss: 5 mL. Complications: None. Specimens: None. Plan: The patient will followup in clinic in approximately 6 weeks to have his first suprapubic catheter changed. SHEBA PEREIRA MD Aug 22, 2018 17:41
[2018-08-22] MEDS ORDERED: fentaNYL 100 MCG/2 ML INJECTION (J3010) IV PRN (17:45)
[2018-08-22] MEDS ORDERED: LR 1,000 ML IV SCH (17:45)
[2018-08-22] MEDS ORDERED: ONDANSETRON 4MG/2ML VIAL (J2405) IV PRN (17:45)
[2018-08-22] MEDS ORDERED: PERCOCET 5MG/325MG TAB PO PRN ×2 (18:00)
[2018-08-22] MEDS ORDERED: ATENOLOL 25 MG TAB As Ordered ONE (20:14)
[2018-08-22] MEDS ORDERED: ATENOLOL 25 MG TAB PO ONE (20:30)
[2018-08-22 22:35] VITALS: BP 133/76
== END 2018-08-22 22:45 | disposition home or self-care (01) ==
LOC: M SDC 11:29
PROVIDERS: ATTEND Urology
DX: R33.9 Retention of urine, unspecified (principal); I12.9 Hypertensive chronic kidney disease with stage 1 through stage 4 chronic kidney disease, or unspecified chronic kidney disease; I48.91 Unspecified atrial fibrillation; I25.10 Atherosclerotic heart disease of native coronary artery without angina pectoris; I50.9 Heart failure, unspecified; E11.22 Type 2 diabetes mellitus with diabetic chronic kidney disease; E11.21 Type 2 diabetes mellitus with diabetic nephropathy; E11.65 Type 2 diabetes mellitus with hyperglycemia; N18.3 Chronic kidney disease, stage 3 (moderate); L89.152 Pressure ulcer of sacral region, stage 2; F20.9 Schizophrenia, unspecified; F02.81 Dementia in other diseases classified elsewhere, unspecified severity, with behavioral disturbance; R07.9 Chest pain, unspecified; I34.8 Other nonrheumatic mitral valve disorders; K21.9 Gastro-esophageal reflux disease without esophagitis; M62.81 Muscle weakness (generalized); F03.90 Unspecified dementia, unspecified severity, without behavioral disturbance, psychotic disturbance, mood disturbance, and anxiety; N40.1 Benign prostatic hyperplasia with lower urinary tract symptoms; Z79.899 Other long term (current) drug therapy; Z79.84 Long term (current) use of oral hypoglycemic drugs; Z79.82 Long term (current) use of aspirin; Z99.3 Dependence on wheelchair; Z95.2 Presence of prosthetic heart valve
CPT/HCPCS: 36415; 51040; 85610; J1100; J1170; J1580; J2250; J2370; J2405; J3010; J3370

== ENCOUNTER → 2018-09-06 | Outpatient (REF) | payer MEDICARE ==
[~2018-09-06] MED LIST changes: -LR 1,000 ML IV ONE
[2018-09-06 18:50] LABS: INR 1.7; PROTHROMBIN TIME 20.2 SECONDS (12.1-14.4)
== END ==
LOC: M LAB REF 17:12
PROVIDERS: ATTEND Physician Assistant
DX: I48.91 Unspecified atrial fibrillation (principal); I48.92 Unspecified atrial flutter

== ENCOUNTER → 2018-09-20 | Outpatient (REF) | payer MEDICARE ==
[2018-09-20 14:47] LABS: INR 2.28; PROTHROMBIN TIME 25.6 SECONDS (12.1-14.4)
== END ==
LOC: M LAB REF 14:16
PROVIDERS: ATTEND Physician Assistant
DX: I48.91 Unspecified atrial fibrillation (principal); I48.92 Unspecified atrial flutter

== ENCOUNTER 2018-10-05 18:01 | Inpatient (IN) | payer MEDICARE, MEDICAID ==
[~2018-10-05] VITALS: Ht 177.8 cm; Wt 92.7 kg
[2018-10-05 18:47] LABS: HEMATOCRIT 33.9 % (42.0-52.0); MEAN CORPUSCULAR HEMOGLOBIN 27.7 pg (27.0-33.0); MEAN CORPUSCULAR HGB CONC 32.4 g/dl (32.0-36.5); MEAN CORPUSCULAR VOLUME 85.4 fl (80.0-96.0); PLATELET COUNT, AUTOMATED 211 10^3/uL (150-450); RED BLOOD COUNT 3.97 10^6/uL (4.30-6.10); WHITE BLOOD COUNT 12.2 10^3/uL (4.0-10.0)
[2018-10-05 19:09] LABS: CALCIUM LEVEL 8.9 MG/DL (8.8-10.2); CREATININE FOR GFR 1.79 MG/DL (0.70-1.30); GLOMERULAR FILTRATION RATE 39.5 (>42); POTASSIUM SERUM 3.9 MEQ/L (3.5-5.1)
[2018-10-05 19:10] LABS: INR 3.43; PROTHROMBIN TIME 35.4 SECONDS (12.1-14.4)
[2018-10-05] MEDS ORDERED: PHYTONADIONE 5 MG TAB PO ONE (19:30)
[2018-10-05] MEDS ORDERED: NS 500 ML IV ONE (19:30)
[2018-10-05] MEDS ORDERED: PILL CRUSHER/CUTTER 1 EACH XX ONE (20:00)
[2018-10-05] MEDS ORDERED: ATEN25TA PO (20:11)
[2018-10-05] MEDS ORDERED: CEPH500C PO (20:13)
[2018-10-05] MEDS ORDERED: GLUCAGON FOR INJ 1 MG VIAL (J1610) SC PRN (20:30)
[2018-10-05] MEDS ORDERED: DEXTROSE 50% 50 ML SYRINGE IV PRN (20:30)
[2018-10-05] MEDS ORDERED: GLUCOSE 4 GM CHEW TABLET PO PRN (20:30)
[2018-10-05] MEDS: ATENOLOL 25 MG TAB PO SCH (21:00)
[2018-10-05] MEDS: HumaLOG INSULIN (NovoLOG) PER UNIT SC SCH (21:00)
[2018-10-05 22:40] VITALS: BP 97/52
[2018-10-05] MEDS: PIPERACILLIN/TAZOBACTAM SOD 3.375 GM in D5W MINI-BAG PLUS 50 ML IV SCH (23:59)
[2018-10-05] MEDS: NS 1,000 ML IV SCH (23:59)
[2018-10-06 00:02] LABS: INR 2.58; PROTHROMBIN TIME 28.2 SECONDS (12.1-14.4)
[2018-10-06] MEDS: PIPERACILLIN/TAZOBACTAM SOD 3.375 GM in D5W MINI-BAG PLUS 50 ML IV SCH ×4 (03:39→22:29)
[2018-10-06 06:00] VITALS: BP 102/58
[2018-10-06 06:28] LABS: BASO # 0.1 10^3/uL (0.0-0.2); BASO % 0.6 % (0.0-1.0); EOS # 1.1 10^3/uL (0.0-0.50); EOS % 10.8 % (0.0-3.0); HEMATOCRIT 28.1 % (42.0-52.0); HEMOGLOBIN 9.1 g/dl (13.5-17.5); LYMPH % 28.6 % (24.0-44.0); MEAN CORPUSCULAR HEMOGLOBIN 27.8 pg (27.0-33.0); MEAN CORPUSCULAR HGB CONC 32.4 g/dl (32.0-36.5); MEAN CORPUSCULAR VOLUME 85.9 fl (80.0-96.0); MONO # 1.1 10^3/uL (0.0-0.8); MONO % 10.4 % (0.0-5.0); NEUTROPHILS # 5.1 10^3/uL (1.8-7.7); NEUTROPHILS % 49.1 % (36.0-66.0); PLATELET COUNT, AUTOMATED 173 10^3/uL (150-450); RED BLOOD COUNT 3.27 10^6/uL (4.30-6.10); WHITE BLOOD COUNT 10.3 10^3/uL (4.0-10.0)
[2018-10-06 06:46] LABS: CALCIUM LEVEL 8.9 MG/DL (8.8-10.2); CREATININE FOR GFR 1.85 MG/DL (0.70-1.30); POTASSIUM SERUM 3.8 MEQ/L (3.5-5.1)
[2018-10-06] MEDS ORDERED: glipiZIDE (GLUCOTROL) 5 MG TAB PO SCH (07:30)
--- NOTE | 2018-10-06 07:49 | HPE ---
DATE OF ADMISSION: 10/05/2018 PRIMARY CARE PROVIDER: Emma Jeter NP UROLOGIST: Dr. Hutton ATTENDING PHYSICIAN: Dr. Hernandez CHIEF COMPLAINT: Hematuria. HISTORY OF PRESENT ILLNESS: The patient is a 78-year-old white male with multiple chronic medical conditions, including dementia, presented to the hospital for evaluation of the hematuria. Patient cannot provide any information since he is demented. The provided history, and she was in the hospital with the patient. Per the , patient had a suprapubic Hathaway catheter inserted back to January 2018 due to urine retention. Since then, he is doing fine. Yesterday, Dr. Hutton replaced his suprapubic catheter in the abdomen. Initially, had some bleeding from the new catheter, but the family was told by Dr. Hutton that was normal when you replace the new one. However, the hematuria is becoming more severe and so the patient was brought to the emergency room (ER) for further evaluation. In the ER, his initial workup was not significant except INR was up to 3.43 and also his creatinine is up to 1.79. Medicine service called for admission. Dr. Hutton was notified by the ER, and he will come to see the patient in the morning. REVIEW OF SYSTEMS: Not available due to dementia. PAST MEDICAL HISTORY: 1. Severe dementia. 2. Type 2 diabetes. 3. Schizophrenia. 4. Coronary artery disease, status post coronary artery bypass graft (CABG). 5. Hypertension. 6. Dyslipidemia. 7. Unspecified congestive heart failure (CHF). 8. Chronic atrial fibrillation, on Coumadin. PAST SURGICAL HISTORY: 1. Left lower extremity trauma and fracture repair many years ago. 2. Suprapubic Hathaway catheter. FAMILY HISTORY: Noncontributory. SOCIAL HISTORY: No tobacco use. No alcohol abuse. No illicit drug abuse. His is his health care proxy. He is DO NOT RESUSCITATE/DO NOT INTUBATE. ALLERGIES: No known drug allergies. MEDICATIONS: Include the following: - aspirin 81 mg by mouth daily - atenolol 75 mg by mouth twice a day - atorvastatin 20 mg by mouth daily - Lasix 40 mg by mouth daily - glipizide 5 mg by mouth daily - metformin 500 mg daily - multiple vitamin one tablet daily - omeprazole 20 mg by mouth daily - potassium chloride one tablet by mouth daily - Risperdal 3 mg by mouth twice a day - Flomax 0.4 mg by mouth daily - Coumadin daily PHYSICAL EXAMINATION: VITAL SIGNS: Temperature 98.7, heart rate is 100, respirations 20, blood pressure 94/53, and oxygen saturation 99% in room air. GENERAL: He is awake, alert, but he is demented. He does not follow commands. He only answers yes or no simple questions. HEENT: Atraumatic. Pupils equal, round, reactive to light. No jaundice. Extraocular muscles intact. Ears, nose, throat are normal. Mouth mucosa little bit dry. NECK: No jugular venous distention (JVD) or bruits. LUNGS: Clear. No wheezing. No crackles. HEART: S1, S2, irregular but not tachycardic. No murmur. ABDOMEN: Soft. Bowel sounds positive. Nontender. He has a suprapubic catheter placed. LOWER EXTREMITIES: No edema in bilateral lower extremities. NEUROLOGICAL: Nonfocal. SKIN: No rash. PSYCHOLOGICAL: No acute psychosis, but dementia. DIAGNOSTIC LAB STUDIES: Include the following: CBC and differential showed WBC 12.2, hemoglobin and hematocrit 11/34, platelets 221. Sodium 139, potassium 3.9, chloride of 105, bicarbonate 29, BUN 21, creatinine 1.79, glucose 259. INR was 3.43. IMPRESSION: 1. Gross hematuria. 2. Urine retention with chronic suprapubic Hathaway catheter. 3. Hypercoagulopathy due to Coumadin. INR was 3.43. 4. Type 2 diabetes. 5. Hypertension. 6. Severe dementia. 7. Chronic atrial fibrillation, on Coumadin. 8. Acute renal injury and dehydration. PLAN: Patient will be admitted to the medical/surgical floor, and we will hold Coumadin and aspirin due to hematuria. He was given vitamin K as well as fresh frozen plasma (FFP) in the ER. Will recheck his INR in the morning. We will give gentle hydration with normal saline due to acute renal injury and dehydration. Also, I will start him on IV antibiotics for possible urinary tract infection and will hold his glipizide as well as the metformin and instead will start him on insulin sliding scale. Dr. Hutton will come to see him tomorrow. Also, will followup his hemoglobin and hematocrit and transfuse if needed. Due to hematuria, will put him on sequential compression socks for deep venous thrombosis (DVT) prophylaxis.
[2018-10-06] MEDS: HumaLOG INSULIN (NovoLOG) PER UNIT SC SCH ×4 (08:02→21:00)
[2018-10-06] MEDS: risperiDONE 3 MG TAB PO SCH (08:03)
[2018-10-06] MEDS: ATORVASTATIN 20 MG TAB PO SCH (08:03)
[2018-10-06] MEDS: NS 1,000 ML IV SCH (08:03)
[2018-10-06] MEDS: ATENOLOL 25 MG TAB PO SCH ×2 (08:03→21:00)
[2018-10-06] MEDS: TAMSULOSIN 0.4 MG CAP PO SCH (08:03)
[2018-10-06] MEDS: OMEPRAZOLE 20 MG CAP PO SCH (08:03)
[2018-10-06] MEDS ORDERED: PILL CRUSHER/CUTTER 1 EACH XX PRN (08:15)
--- NOTE | 2018-10-06 11:19 | IPNPDOC ---
Date Seen The patient was seen on 10/06/18. Progress Note SUBJECTIVE: Pt is very demented, and according to the .this is baseline. blood transfusion consent obtained from the . no fever, or chills overnight. Per Urology, continue w present mgt. hold coumadin. and monitor h&H. no plans for cystoscopy. OBJECTIVE: PHYSICAL EXAMINATION: VITAL SIGNS:PLS SEE BELOW GENERAL: He is awake, alert, but he is demented. He does not follow commands. He only answers yes or no simple questions. HEENT: Atraumatic. Pupils equal, round, reactive to light. No jaundice. Extraocular muscles intact. Ears, nose, throat are normal. Mouth mucosa little bit dry. NECK: No jugular venous distention (JVD) or bruits. LUNGS: Clear. No wheezing. No crackles. HEART: S1, S2, irregular but not tachycardic. No murmur. ABDOMEN: Soft. Bowel sounds positive. Nontender. He has a suprapubic catheter placed. LOWER EXTREMITIES: No edema in bilateral lower extremities. NEUROLOGICAL: Nonfocal. SKIN: No rash. PSYCHOLOGICAL: No acute psychosis, but dementia. DIAGNOSTIC LAB STUDIES:PLS SEE BELOW ASSESSMENT AND PLAN: The patient is a 78-year-old white male with multiple chronic medical conditions, including dementia, presented to the hospital for evaluation of the hematuria. Patient cannot provide any information since he is demented. The provided history, and she was in the hospital with the patient. Per the , patient had a suprapubic Hathaway catheter inserted back to January 2018 due to urine retention. Since then, he is doing fine. Yesterday, Dr. Hutton replaced his suprapubic catheter in the abdomen. Initially, had some bleeding from the new catheter, but the family was told by Dr. Hutton that was normal when you replace the new one. However, the hematuria is becoming more severe and so the patient was brought to the emergency room (ER) for further evaluation. In the ER, his initial workup was not significant except INR was up to 3.43 and also his creatinine is up to 1.79. Medicine service called for admission. Dr. Hutton was notified by the ER, and he will come to see the patient in the morning. Gross hematuria in the setting of chronic warfarin for Afib was admitted to the medical/surgical floor, and we will hold Coumadin and aspirin due to hematuria. He was given vitamin K as well as fresh frozen plasma (FFP) in the ERAlso, on IV antibiotics for possible urinary tract infection await urine cx result Acute blood loss anemia due to gross hematuria Urine retention with chronic suprapubic Hathaway catheter. urology Dr. Hutton consulted Hypercoagulopathy due to Coumadin. INR was 3.43. Will recheck his INR in the morning. Type 2 diabetes. will hold his glipizide as well as the metformin and instead will start him on insulin sliding sc Hypertension. Severe dementia. Chronic atrial fibrillation, on Coumadin. Acute renal injury and dehydration. normal saline due to acute renal injury and dehydration. DVT PROPHYLAXIS: Due to hematuria,on sequential compression socks for deep venous thrombosis (DVT) prophylaxis. VS, I&O, 24H, Fishbone Vital Signs/I&O Vital Signs Date Time Temp Pulse Resp B/P (MAP) Pulse Ox O2 Delivery O2 Flow Rate FiO2 10/06/18 08:03 84 102/58 10/06/18 06:00 97.9 20 96 10/05/18 22:32 Room Air I&O- Last 24 Hours up to 6 AM 10/06/18 06:00 Intake Total 500 ml Output Total 450 ml Balance 50 ml Laboratory Data 24H LABS Laboratory Tests 2 10/05/18 18:30: Nucleated Red Blood Cells % (auto) 0.0, Prothrombin Time 35.4H, Prothromb Time International Ratio 3.43, Anion Gap 9, Glomerular Filtration Rate 39.5L, Blood Urea Nitrogen 21H, Creatinine 1.79H, Sodium Level 139, Potassium Level 3.9, Chloride Level 101, Carbon Dioxide Level 29, Calcium Level 8.9 10/05/18 23:43: Prothrombin Time 28.2H, Prothromb Time International Ratio 2.58 10/06/18 00:23: Bedside Glucose (Misc Panel) 181H 10/06/18 06:04: Nucleated Red Blood Cells % (auto) 0.0, Anion Gap 8, Glomerular Filtration Rate 38.0L, Blood Urea Nitrogen 25H, Creatinine 1.85H, Sodium Level 141, Potassium Level 3.8, Chloride Level 104, Carbon Dioxide Level 29, Calcium Level 8.9, Immature Granulocyte % (Auto) 0.5, White Blood Count 10.3H, Red Blood Count 3.27L, Hemoglobin 9.1L, Hematocrit 28.1L, Mean Corpuscular Volume 85.9, Mean Corpuscular Hemoglobin 27.8, Mean Corpuscular Hemoglobin Concent 32.4, Red Cell Distribution Width 14.3, Platelet Count 173, Neutrophils (%) (Auto) 49.1, Lymphocytes (%) (Auto) 28.6, Monocytes (%) (Auto) 10.4H, Eosinophils (%) (Auto) 10.8H, Basophils (%) (Auto) 0.6, Neutrophils # (Auto) 5.1, Lymphocytes # (Auto) 3.0, Monocytes # (Auto) 1.1H, Eosinophils # (Auto) 1.1H, Basophils # (Auto) 0.1 CBC/BMP Laboratory Tests 10/05/18 18:30 Red Blood Count 3.97 L, Mean Corpuscular Volume 85.4, Mean Corpuscular Hemoglobin 27.7, Mean Corpuscular Hemoglobin Concent 32.4, Red Cell Distribution Width 14.0, Calcium Level 8.9 10/06/18 06:04 Red Blood Count 3.27 L, Mean Corpuscular Volume 85.9, Mean Corpuscular Hemoglobin 27.8, Mean Corpuscular Hemoglobin Concent 32.4, Red Cell Distribution Width 14.3, Calcium Level 8.9, Neutrophils (%) (Auto) 49.1, Lymphocytes (%) (Auto) 28.6, Monocytes (%) (Auto) 10.4 H, Eosinophils (%) (Auto) 10.8 H, Basophils (%) (Auto) 0.6, Neutrophils # (Auto) 5.1, Lymphocytes # (Auto) 3.0, Monocytes # (Auto) 1.1 H, Eosinophils # (Auto) 1.1 H, Basophils # (Auto) 0.1 NORMA TILLMAN MD Oct 06, 2018 10:45
[2018-10-06 12:16] LABS: HEMATOCRIT 26.3 % (42.0-52.0); HEMOGLOBIN 8.4 g/dl (13.5-17.5)
[2018-10-06 14:00] VITALS: BP 96/52
--- NOTE | 2018-10-06 15:29 | SMCUROLCON ---
Urology Consultation General Date of Consultation 10/06/18 Reason For Consultation This patient is seen for Hematuria. History of Present Illness This is a 78 y/o M w/ HTN, CHF, CAD, DM2, A fib (on coumadin), and urinary retention (s/p open cystotomy with suprapubic catheter placement on 08/22/18), admitted to the hospital o/n for gross hematuria and hypotension. The patient's gross hematuria developed after having his suprapubic catheter changed in the office 2 days ago. The hematuria worsened over the next day and this prompted his family to bring him to the ER. They note that the SP catheter has drained fine, but he has had some clots drain out of his urethra. He denies pain. His Hb on admission was 11 and his INR was 3.4. Past Medical History Medical History see HPI Surgical Hstory CABG, suprapubic catheter placement Medications Current Medications Current Medications Atenolol (Tenormin) 75 mg BID PO Last administered on 10/06/18at 08:03; Start 10/05/18 at 21:00 Atorvastatin Calcium (Lipitor) 20 mg DAILY PO Last administered on 10/06/18at 08:03; Start 10/06/18 at 09:00 Dextrose (Dextrose 50%) 25 ml ASDIRECTED PRN IV SEE LABEL COMMENTS; Start 10/05/18 at 20:30 Glipizide (Glucotrol) 5 mg DAILY@0730 PO ; Start 10/06/18 at 07:30; Stop 10/06/18 at 07:30; Status DC Glucagon (Glucagon) 1 mg ASDIRECTED PRN SC SEE LABEL COMMENTS; Start 10/05/18 at 20:30 Glucose (Glucose) 16 GM ASDIRECTED PRN PO SEE LABEL COMMENTS; Start 10/05/18 at 20:30 Home Med (Med Rec Complete!) ASDIRECTED XX ; Start 10/05/18 at 20:15; Stop 10/05/18 at 20:17; Status DC Insulin Human Lispro (HumaLOG INSULIN) See Protocol Table AC SC Last administered on 10/06/18at 11:34; Start 10/06/18 at 07:30 Insulin Human Lispro (HumaLOG INSULIN) See Protocol Table QHS SC ; Start 10/05/18 at 21:00 Omeprazole (PriLOSEC) 20 mg DAILY PO Last administered on 10/06/18at 08:03; Start 10/06/18 at 09:00 Piperacillin Sod/ Tazobactam Sod 3.375 gm/Dextrose 50 ml @ 50 mls/hr Q6H IV Last administered on 10/06/18at 14:30; Start 10/05/18 at 21:00 Risperidone (RisperDAL) 3 mg DAILY PO Last administered on 10/06/18 08:03; Start 10/06/18 at 09:00 Sodium Chloride 1,000 ml @ 75 mls/hr [id number] IV Last administered on 10/05/18at 23:59; Start 10/05/18 at 20:28 Tamsulosin HCl (Flomax) 0.4 mg DAILY PO Last administered on 10/06/18 08:03; Start 10/06/18 at 09:00 Allergies Allergies: Coded Allergies: No Known Drug Allergy (Verified Allergy, Unknown, 08/22/18) Review of Systems General: Reports: ROS Unobtainable Physical Examination General Exam: No Acute Distress Chest Exam: Normal air movement Heart Exam: Rate Normal Abdomen Exam: Soft Male Exam 20Fr suprapubic catheter in place, draining dark red urine; uncircumcised phallus w/ small amount of blood at the meatus and small clots in underwear Vital Signs/I&O Vital Signs Date Time Temp Pulse Resp B/P (MAP) Pulse Ox O2 Delivery O2 Flow Rate FiO2 10/06/18 14:00 97.4 95 20 96/52 (67) 98 10/05/18 22:32 Room Air I&O- Last 24 Hours up to 6 AM 10/06/18 06:00 Intake Total 500 ml Output Total 450 ml Balance 50 ml Laboratory Data 24H Labs Laboratory Tests 2 10/05/18 18:30: Nucleated Red Blood Cells % (auto) 0.0, Prothrombin Time 35.4H, Prothromb Time International Ratio 3.43, Anion Gap 9, Glomerular Filtration Rate 39.5L, Blood Urea Nitrogen 21H, Creatinine 1.79H, Sodium Level 139, Potassium Level 3.9, Chloride Level 101, Carbon Dioxide Level 29, Calcium Level 8.9 10/05/18 23:43: Prothrombin Time 28.2H, Prothromb Time International Ratio 2.58 10/06/18 00:23: Bedside Glucose (Misc Panel) 181H 10/06/18 06:04: Nucleated Red Blood Cells % (auto) 0.0, Anion Gap 8, Glomerular Filtration Rate 38.0L, Blood Urea Nitrogen 25H, Creatinine 1.85H, Sodium Level 141, Potassium Level 3.8, Chloride Level 104, Carbon Dioxide Level 29, Calcium Level 8.9, Immature Granulocyte % (Auto) 0.5, White Blood Count 10.3H, Red Blood Count 3.27L, Hemoglobin 9.1L, Hematocrit 28.1L, Mean Corpuscular Volume 85.9, Mean Corpuscular Hemoglobin 27.8, Mean Corpuscular Hemoglobin Concent 32.4, Red Cell Distribution Width 14.3, Platelet Count 173, Neutrophils (%) (Auto) 49.1, Lymphocytes (%) (Auto) 28.6, Monocytes (%) (Auto) 10.4H, Eosinophils (%) (Auto) 10.8H, Basophils (%) (Auto) 0.6, Neutrophils # (Auto) 5.1, Lymphocytes # (Auto) 3.0, Monocytes # (Auto) 1.1H, Eosinophils # (Auto) 1.1H, Basophils # (Auto) 0.1 10/06/18 11:19: Bedside Glucose (Misc Panel) 216H CBC/BMP Laboratory Tests 10/05/18 18:30 Red Blood Count 3.97 L, Mean Corpuscular Volume 85.4, Mean Corpuscular Hemoglobin 27.7, Mean Corpuscular Hemoglobin Concent 32.4, Red Cell Distribution Width 14.0, Calcium Level 8.9 10/06/18 06:04 Red Blood Count 3.27 L, Mean Corpuscular Volume 85.9, Mean Corpuscular Hemoglobin 27.8, Mean Corpuscular Hemoglobin Concent 32.4, Red Cell Distribution Width 14.3, Calcium Level 8.9, Neutrophils (%) (Auto) 49.1, Lymphocytes (%) (Auto) 28.6, Monocytes (%) (Auto) 10.4 H, Eosinophils (%) (Auto) 10.8 H, Basophils (%) (Auto) 0.6, Neutrophils # (Auto) 5.1, Lymphocytes # (Auto) 3.0, Monocytes # (Auto) 1.1 H, Eosinophils # (Auto) 1.1 H, Basophils # (Auto) 0.1 10/06/18 12:02 Assessment This is a 78 y/o M admitted w/ gross hematuria and hypotension. The gross hematuria is 2/2 urethral trauma during SP catheter change. This should resolve but will require that his INR be reversed and normal for a few days. I irrigated his SP catheter and got a moderate amount of clots out. Once done irrigating, urine drained light pink. Plan - agree w/ reversing INR - continue to hold coumadin - manually irrigate SP catheter as needed if there is concern for clot retention - will follow SHEBA PEREIRA MD Oct 06, 2018 15:29
[2018-10-06 18:38] LABS: HEMATOCRIT 27.5 % (42.0-52.0); HEMOGLOBIN 8.7 g/dl (13.5-17.5)
[2018-10-06 20:33] LABS: INR 1.42; PROTHROMBIN TIME 17.6 SECONDS (12.1-14.4)
[2018-10-06 22:00] VITALS: BP 107/56
[2018-10-07 00:49] LABS: HEMATOCRIT 26.2 % (42.0-52.0); HEMOGLOBIN 8.4 g/dl (13.5-17.5)
[2018-10-07] MEDS: PIPERACILLIN/TAZOBACTAM SOD 3.375 GM in D5W MINI-BAG PLUS 50 ML IV SCH ×4 (03:00→20:23)
[2018-10-07 06:00] VITALS: BP 123/68
[2018-10-07 07:04] LABS: HEMATOCRIT 25.8 % (42.0-52.0); HEMOGLOBIN 8.3 g/dl (13.5-17.5)
[2018-10-07 07:30] LABS: CALCIUM LEVEL 8.6 MG/DL (8.8-10.2); CREATININE FOR GFR 1.5 MG/DL (0.70-1.30); GLOMERULAR FILTRATION RATE 48.4 (>42); POTASSIUM SERUM 3.5 MEQ/L (3.5-5.1)
--- NOTE | 2018-10-07 07:41 | IPNPDOC ---
Assessment/Plan Date Seen The patient was seen on 10/07/18. Patient Summary This is a 78 y/o M admitted w/ hypotension and gross hematuria due to trauma when changing his SP catheter earlier this week. His urine is draining clear this morning. Plan/VTE VTE Prophylaxis Ordered?: Yes VTE Exclusion Mechanical Proph: N/A:VTE Prophy Ordered Plan - he is ok for discharge home from urologic standpoint - would recommend that coumadin be held for a week - my office will arrange f/u for him Subjective Review oF Systems Chief Complaint The patient is a 78-year-old male admitted with a reason for visit of Hematuria. Events since Last Encounter No acute events o/n. Objective Physical Examination General Exam: No Acute Distress Skin Exam: Nl turgor and temperature Other physical findings catheter in place, draining clear urine Vital Signs/I&O Vital Signs Date Time Temp Pulse Resp B/P (MAP) Pulse Ox O2 Delivery O2 Flow Rate FiO2 10/07/18 06:00 95.3 73 20 123/68 (86) 96 10/05/18 22:32 Room Air I&O- Last 24 Hours up to 6 AM 10/07/18 06:00 Intake Total 1280 ml Output Total 550 ml Balance 730 ml Laboratory Data Labs 24H Laboratory Tests 2 10/06/18 11:19: Bedside Glucose (Misc Panel) 216H 10/06/18 16:27: Bedside Glucose (Misc Panel) 141H 10/06/18 20:04: Prothrombin Time 17.6H, Prothromb Time International Ratio 1.42 10/06/18 20:36: Bedside Glucose (Misc Panel) 165H 10/07/18 06:37: Anion Gap 8, Glomerular Filtration Rate 48.4, Blood Urea Nitrogen 20H, Creatin ine 1.50H, Sodium Level 141, Potassium Level 3.5, Chloride Level 105, Carbon Dioxide Level 28, Calcium Level 8.6L CBC/BMP Laboratory Tests 10/06/18 12:02 10/06/18 18:09 10/07/18 00:13 10/07/18 06:37 Calcium Level 8.6 L FSBS Laboratory Tests Test 10/06/18 11:19 10/06/18 16:27 10/06/18 20:36 Range/Units Bedside Glucose (Misc Panel) 216 141 165 83-110 MG/DL SHEBA PEREIRA MD Oct 07, 2018 07:41
[2018-10-07] MEDS: HumaLOG INSULIN (NovoLOG) PER UNIT SC SCH ×4 (08:17→20:23)
[2018-10-07] MEDS: NS 1,000 ML IV SCH (08:17)
[2018-10-07 08:30] VITALS: BP 126/62
--- NOTE | 2018-10-07 10:28 | IPNPDOC ---
Date Seen The patient was seen on 10/07/18. Progress Note SUBJECTIVE: Despite 2liters of ns at 75ml/hr, pt's creatinine is not back to baseline, and pt was found to be hypothermic overnight. on zosyn. no urine cx available. Pt is very demented, and according to the .this is baseline. blood transfusion consent obtained from the . no fever, or chills overnight. Per Urology, continue w present mgt. hold coumadin. and monitor h&H. no plans for cystoscopy. OBJECTIVE: PHYSICAL EXAMINATION: VITAL SIGNS:PLS SEE BELOW GENERAL: He is awake, alert, but he is demented. He does not follow commands. He only answers yes or no simple questions. HEENT: Atraumatic. Pupils equal, round, reactive to light. No jaundice. Extraocular muscles intact. Ears, nose, throat are normal. Mouth mucosa little bit dry. NECK: No jugular venous distention (JVD) or bruits. LUNGS: Clear. No wheezing. No crackles. HEART: S1, S2, irregular but not tachycardic. No murmur. ABDOMEN: Soft. Bowel sounds positive. Nontender. He has a suprapubic catheter placed. LOWER EXTREMITIES: No edema in bilateral lower extremities. NEUROLOGICAL: Nonfocal. SKIN: No rash. PSYCHOLOGICAL: No acute psychosis, but dementia. DIAGNOSTIC LAB STUDIES:PLS SEE BELOW ASSESSMENT AND PLAN: The patient is a 78-year-old white male with multiple chronic medical conditions, including dementia, presented to the hospital for evaluation of the hematuria. Patient cannot provide any information since he is demented. The provided history, and she was in the hospital with the patient. Per the , patient had a suprapubic Hathaway catheter inserted back to January 2018 due to urine retention. Since then, he is doing fine. Yesterday, Dr. Patricia replaced his suprapubic catheter in the abdomen. Initially, had some bleeding from the new catheter, but the family was told by Dr. Patricia that was normal when you replace the new one. However, the hematuria is becoming more severe and so the patient was brought to the emergency room (ER) for further evaluation. In the ER, his initial workup was not significant except INR was up to 3.43 and also his creatinine is up to 1.79. Medicine service called for admission. Dr. Patricia was notified by the ER, and he will come to see the patient in the morning. Gross hematuria in the setting of chronic warfarin for Afib was admitted to the medical/surgical floor, and we will hold Coumadin and aspirin due to hematuria. He was given vitamin K as well as fresh frozen plasma (FFP) in the ERAlso, on IV antibiotics for possible urinary tract infection await urine cx result Acute blood loss anemia due to gross hematuria with worsening anemia most likely hemodilutional. pt is unable to provide any review of systems due to severe dementia. Urine retention with chronic suprapubic Hathaway catheter. urology Dr. Patricia consulted. ok to dc per urology. Hypercoagulopathy due to Coumadin. INR was 3.43. hold coumadin for [address] patricia. Type 2 diabetes. will hold his glipizide as well as the metformin and instead will start him on insulin sliding sc Hypertension. Severe dementia. Chronic atrial fibrillation, s/p Coumadin. rate controlled. due to acute gross hematuria, coumadin to be held for one week. Acute renal injury and dehydration. normal saline due to acute renal injury and dehydration. not back to baseline, but slowly improving with adequate urine output and no signs of fluid overload. DVT PROPHYLAXIS: Due to hematuria,on sequential compression socks for deep venous thrombosis (DVT) prophylaxis. disposition.once creatinine is back to baseline. VS, I&O, 24H, Gabrielbone Vital Signs/I&O Vital Signs Date Time Temp Pulse Resp B/P (MAP) Pulse Ox O2 Delivery O2 Flow Rate FiO2 10/07/18 00:00 98 10/06/18 22:00 97.7 95 20 107/56 (73) 10/05/18 22:32 Room Air I&O- Last 24 Hours up to 6 AM 10/07/18 06:00 Intake Total 920 ml Output Total 550 ml Balance 370 ml Laboratory Data 24H LABS Laboratory Tests 2 10/06/18 06:04: Immature Granulocyte % (Auto) 0.5, White Blood Count 10.3H, Red Blood Count 3.27L, Hemoglobin 9.1L, Hematocrit 28.1L, Mean Corpuscular Volume 85.9, Mean Corpuscular Hemoglobin 27.8, Mean Corpuscular Hemoglobin Concent 32.4, Red Cell Distribution Width 14.3, Platelet Count 173, Neutrophils (%) (Auto) 49.1, Ly mphocytes (%) (Auto) 28.6, Monocytes (%) (Auto) 10.4H, Eosinophils (%) (Auto) 10.8H, Basophils (%) (Auto) 0.6, Neutrophils # (Auto) 5.1, Lymphocytes # (Auto) 3.0, Monocytes # (Auto) 1.1H, Eosinophils # (Auto) 1.1H, Basophils # (Auto) 0.1, Nucleated Red Blood Cells % (auto) 0.0, Anion Gap 8, Glomerular Filtration Rate 38.0L, Blood Urea Nitrogen 25H, Creatinine 1.85H, Sodium Level 141, Potassium Level 3.8, Chloride Level 104, Carbon Dioxide Level 29, Calcium Level 8.9 10/06/18 11:19: Bedside Glucose (Misc Panel) 216H 10/06/18 16:27: Bedside Glucose (Misc Panel) 141H 10/06/18 20:04: Prothrombin Time 17.6H, Prothromb Time International Ratio 1.42 10/06/18 20:36: Bedside Glucose (Misc Panel) 165H CBC/BMP Laboratory Tests 10/06/18 06:04 Red Blood Count 3.27 L, Mean Corpuscular Volume 85.9, Mean Corpuscular Hemoglobin 27.8, Mean Corpuscular Hemoglobin Concent 32.4, Red Cell Distribution Width 14.3, Neutrophils (%) (Auto) 49.1, Lymphocytes (%) (Auto) 28.6, Monocytes (%) (Auto) 10.4 H, Eosinophils (%) (Auto) 10.8 H, Basophils (%) (Auto) 0.6, Neutrophils # (Auto) 5.1, Lymphocytes # (Auto) 3.0, Monocytes # (Auto) 1.1 H, Eosinophils # (Auto) 1.1 H, Basophils # (Auto) 0.1, Calcium Level 8.9 10/06/18 12:02 10/06/18 18:09 10/07/18 00:13 NORMA TILLMAN MD Oct 07, 2018 05:30
[2018-10-07] MEDS: OMEPRAZOLE 20 MG CAP PO SCH (10:58)
[2018-10-07] MEDS: risperiDONE 3 MG TAB PO SCH (10:58)
[2018-10-07] MEDS: TAMSULOSIN 0.4 MG CAP PO SCH (10:59)
[2018-10-07] MEDS: ATORVASTATIN 20 MG TAB PO SCH (11:00)
[2018-10-07] MEDS: ATENOLOL 25 MG TAB PO SCH ×2 (11:00→20:21)
[2018-10-07] MEDS: NS 0.45% 1,000 ML IV SCH (11:01)
[2018-10-07 12:28] LABS: HEMATOCRIT 26.2 % (42.0-52.0); HEMOGLOBIN 8.5 g/dl (13.5-17.5)
[2018-10-07 14:00] VITALS: BP 114/58
[2018-10-07 18:15] LABS: HEMATOCRIT 26.1 % (42.0-52.0); HEMOGLOBIN 8.3 g/dl (13.5-17.5)
[2018-10-07 20:35] LABS: INR 1.31; PROTHROMBIN TIME 16.5 SECONDS (12.1-14.4)
[2018-10-07 22:00] VITALS: BP 116/60
[2018-10-08 00:34] LABS: HEMATOCRIT 25.5 % (42.0-52.0); HEMOGLOBIN 8.3 g/dl (13.5-17.5)
[2018-10-08] MEDS: PIPERACILLIN/TAZOBACTAM SOD 3.375 GM in D5W MINI-BAG PLUS 50 ML IV SCH ×4 (02:42→21:55)
[2018-10-08] MEDS: NS 0.45% 1,000 ML IV SCH ×2 (02:42→14:32)
[2018-10-08 06:00] VITALS: BP 116/58
[2018-10-08 07:30] LABS: HEMATOCRIT 26.2 % (42.0-52.0); HEMOGLOBIN 8.4 g/dl (13.5-17.5)
[2018-10-08 08:05] LABS: CALCIUM LEVEL 8.5 MG/DL (8.8-10.2); CREATININE FOR GFR 1.33 MG/DL (0.70-1.30); GLOMERULAR FILTRATION RATE 55.7 (>42); POTASSIUM SERUM 3.7 MEQ/L (3.5-5.1)
[2018-10-08] MEDS: HumaLOG INSULIN (NovoLOG) PER UNIT SC SCH ×4 (09:27→21:00)
[2018-10-08] MEDS: ATORVASTATIN 20 MG TAB PO SCH (09:28)
[2018-10-08] MEDS: ATENOLOL 25 MG TAB PO SCH ×2 (09:29→21:55)
[2018-10-08] MEDS: risperiDONE 3 MG TAB PO SCH (09:30)
[2018-10-08] MEDS: TAMSULOSIN 0.4 MG CAP PO SCH (09:30)
[2018-10-08] MEDS: OMEPRAZOLE 20 MG CAP PO SCH (09:30)
--- NOTE | 2018-10-08 11:10 | IPNPDOC ---
Date Seen The patient was seen on 10/08/18. Progress Note SUBJECTIVE: Discharge postponed due to acute kidney injury which is improving but not to baseline. still on ivfluids. no c/o sob. dc plans wednesday or wednesday Pt is very demented, and according to the .this is baseline. blood transfusion consent obtained from the . no fever, or chills overnight. Per Urology, continue w present mgt. hold coumadin. and monitor h&H. no plans for cystoscopy. OBJECTIVE: PHYSICAL EXAMINATION: VITAL SIGNS:PLS SEE BELOW GENERAL: He is awake, alert, but he is demented. He does not follow commands. He only answers yes or no simple questions. HEENT: Atraumatic. Pupils equal, round, reactive to light. No jaundice. Extraocular muscles intact. Ears, nose, throat are normal. Mouth mucosa little bit dry. NECK: No jugular venous distention (JVD) or bruits. LUNGS: Clear. No wheezing. No crackles. HEART: S1, S2, irregular but not tachycardic. No murmur. ABDOMEN: Soft. Bowel sounds positive. Nontender. He has a suprapubic catheter placed. LOWER EXTREMITIES: No edema in bilateral lower extremities. NEUROLOGICAL: Nonfocal. SKIN: No rash. PSYCHOLOGICAL: No acute psychosis, but dementia. DIAGNOSTIC LAB STUDIES:PLS SEE BELOW ASSESSMENT AND PLAN: The patient is a 78-year-old white male with multiple chronic medical conditions, including dementia, presented to the hospital for evaluation of the hematuria. Patient cannot provide any information since he is demented. The provided history, and she was in the hospital with the patient. Per the , patient had a suprapubic Hathaway catheter inserted back to January 2018 due to urine retention. Since then, he is doing fine. Yesterday, Dr. Patricia replaced his suprapubic catheter in the abdomen. Initially, had some bleeding from the new catheter, but the family was told by Dr. Patricia that was normal when you replace the new one. However, the hematuria is becoming more severe and so the patient was brought to the emergency room (ER) for further evaluation. In the ER, his initial workup was not significant except INR was up to 3.43 and also his creatinine is up to 1.79. Medicine service called for admission. Dr. Patricia was notified by the ER, and he will come to see the patient in the morning. Gross hematuria in the setting of chronic warfarin for Afib was admitted to the medical/surgical floor, and we will hold Coumadin and aspirin due to hematuria. He was given vitamin K as well as fresh frozen plasma (FFP) in the ERAlso, on IV antibiotics for possible urinary tract infection await urine cx result Acute blood loss anemia due to gross hematuria with worsening anemia most likely hemodilutional. pt is unable to provide any review of systems due to severe dementia. Urine retention with chronic suprapubic Hathaway catheter. urology Dr. Patricia consulted. ok to dc per urology. Hypercoagulopathy due to Coumadin. INR was 3.43. hold coumadin for [address] patricia. Type 2 diabetes. will hold his glipizide as well as the metformin and instead will start him on insulin sliding sc Hypertension. Severe dementia. Chronic atrial fibrillation, s/p Coumadin. rate controlled. due to acute gross hematuria, coumadin to be held for one week. Acute renal injury and dehydration. normal saline due to acute renal injury and dehydration. not back to baseline, but slowly improving with adequate urine output and no signs of fluid overload. DVT PROPHYLAXIS: Due to hematuria,on sequential compression socks for deep venous thrombosis (DVT) prophylaxis. disposition.once creatinine is back to baseline. VS, I&O, 24H, Fishbone VS, I&O, 24H, Fishbone Vital Signs/I&O Vital Signs Date Time Temp Pulse Resp B/P (MAP) Pulse Ox O2 Delivery O2 Flow Rate FiO2 10/08/18 09:29 82 116/58 10/08/18 06:00 97.0 20 98 10/05/18 22:32 Room Air I&O- Last 24 Hours up to 6 AM 10/08/18 06:00 Intake Total 1737.5 ml Output Total 2000 ml Balance -262.5 ml Laboratory Data 24H LABS Laboratory Tests 2 10/07/18 11:46: Bedside Glucose (Misc Panel) 164H 10/07/18 16:36: Bedside Glucose (Misc Panel) 146H 10/07/18 20:12: Bedside Glucose (Misc Panel) 159H 10/07/18 20:15: Prothrombin Time 16.5H, Prothromb Time International Ratio 1.31 10/08/18 07:23: Anion Gap 8, Glomerular Filtration Rate 55.7, Blood Urea Nitrogen 17, Creatinine 1.33H, Sodium Level 143, Potassium Level 3.7, Chloride Level 106, Carbon Dioxide Level 29, Calcium Level 8.5L CBC/BMP Laboratory Tests 10/07/18 12:08 10/07/18 17:47 10/08/18 00:04 10/08/18 07:23 Calcium Level 8.5 L NORMA TILLMAN MD Oct 08, 2018 11:10
[2018-10-08 12:33] LABS: HEMATOCRIT 25.5 % (42.0-52.0); HEMOGLOBIN 8.2 g/dl (13.5-17.5)
[2018-10-08 14:00] VITALS: BP 129/59
[2018-10-08 18:14] LABS: HEMATOCRIT 26.9 % (42.0-52.0); HEMOGLOBIN 8.7 g/dl (13.5-17.5)
[2018-10-08 22:00] VITALS: BP 124/63
[2018-10-09] MEDS: PIPERACILLIN/TAZOBACTAM SOD 3.375 GM in D5W MINI-BAG PLUS 50 ML IV SCH ×4 (03:13→21:12)
[2018-10-09 06:00] VITALS: BP 132/67
[2018-10-09 07:09] LABS: CALCIUM LEVEL 8.7 MG/DL (8.8-10.2); CREATININE FOR GFR 1.31 MG/DL (0.70-1.30); GLOMERULAR FILTRATION RATE 56.6 (>42); POTASSIUM SERUM 3.6 MEQ/L (3.5-5.1)
[2018-10-09] MEDS ORDERED: NS 1,000 ML IV ONE (07:45)
[2018-10-09] MEDS: HumaLOG INSULIN (NovoLOG) PER UNIT SC SCH ×4 (07:46→21:00)
[2018-10-09] MEDS: OMEPRAZOLE 20 MG CAP PO SCH (10:12)
[2018-10-09] MEDS: TAMSULOSIN 0.4 MG CAP PO SCH (10:12)
[2018-10-09] MEDS: risperiDONE 3 MG TAB PO SCH (10:12)
[2018-10-09] MEDS: ATORVASTATIN 20 MG TAB PO SCH (10:12)
[2018-10-09] MEDS: ATENOLOL 25 MG TAB PO SCH ×2 (10:12→21:12)
--- NOTE | 2018-10-09 10:14 | IPNPDOC ---
Date Seen The patient was seen on 10/09/18. Progress Note SUBJECTIVE: No other issues overnight but despite hydration, creatinine remains at 1.3. Discharge postponed due to acute kidney injury which is improving but not to baseline. still on ivfluids. no c/o sob. dc plans wednesday Pt is very demented, and according to the .this is baseline. blood transfusion consent obtained from the . no fever, or chills overnight. Per Urology, continue w present mgt. hold coumadin for one week. and monitor h&H. no plans for cystoscopy. OBJECTIVE: PHYSICAL EXAMINATION: VITAL SIGNS:PLS SEE BELOW GENERAL: He is awake, alert, but he is demented. He does not follow commands. He only answers yes or no simple questions. HEENT: Atraumatic. Pupils equal, round, reactive to light. No jaundice. Extraocular muscles intact. Ears, nose, throat are normal. Mouth mucosa little bit dry. NECK: No jugular venous distention (JVD) or bruits. LUNGS: Clear. No wheezing. No crackles. HEART: S1, S2, irregular but not tachycardic. No murmur. ABDOMEN: Soft. Bowel sounds positive. Nontender. He has a suprapubic catheter placed. LOWER EXTREMITIES: No edema in bilateral lower extremities. NEUROLOGICAL: Nonfocal. SKIN: No rash. PSYCHOLOGICAL: No acute psychosis, but dementia. DIAGNOSTIC LAB STUDIES:PLS SEE BELOW ASSESSMENT AND PLAN: The patient is a 78-year-old white male with multiple chronic medical conditions, including dementia, presented to the hospital for evaluation of the hematuria. Patient cannot provide any information since he is demented. The provided history, and she was in the hospital with the patient. Per the , patient had a suprapubic Hathaway catheter inserted back to January 2018 due to urine retention. Since then, he is doing fine. Yesterday, Dr. Patricia replaced his suprapubic catheter in the abdomen. Initially, had some bleeding from the new catheter, but the family was told by Dr. Patricia that was normal when you replace the new one. However, the hematuria is becoming more severe and so the patient was brought to the emergency room (ER) for further evaluation. In the ER, his initial workup was not significant except INR was up to 3.43 and also his creatinine is up to 1.79. Medicine service called for admission. Dr. Patricia was notified by the ER, and he will come to see the patient in the morning. Gross hematuria in the setting of chronic warfarin for Afib was admitted to the medical/surgical floor, and we will hold Coumadin and aspirin due to hematuria. He was given vitamin K as well as fresh frozen plasma (FFP) in the ERAlso, on IV antibiotics for possible urinary tract infection await urine cx result Acute blood loss anemia due to gross hematuria with worsening anemia most likely hemodilutional. pt is unable to provide any review of systems due to severe dementia. Urine retention with chronic suprapubic Hathaway catheter. urology Dr. Patricia consulted. ok to dc per urology. Hypercoagulopathy due to Coumadin. INR was 3.43. hold coumadin for [address] patricia. Type 2 diabetes. will hold his glipizide as well as the metformin and instead will start him on insulin sliding sc Hypertension. Severe dementia. Chronic atrial fibrillation, s/p Coumadin. rate controlled. due to acute gross hematuria, coumadin to be held for one week. Acute renal injury and dehydration. normal saline due to acute renal injury and dehydration. not back to baseline, but slowly improving with adequate urine output and no signs of fluid overload. DVT PROPHYLAXIS: Due to hematuria,on sequential compression socks for deep venous thrombosis (DVT) prophylaxis. disposition.once creatinine is back to baseline, hopefully on wednesday. VS, I&O, 24H, Gabrielbone Vital Signs/I&O Vital Signs Date Time Temp Pulse Resp B/P (MAP) Pulse Ox O2 Delivery O2 Flow Rate FiO2 10/09/18 06:00 98.9 90 20 132/67 (88) 97 10/05/18 22:32 Room Air I&O- Last 24 Hours up to 6 AM 10/09/18 06:00 Intake Total 1300 ml Output Total 2300 ml Balance -1000 ml Laboratory Data 24H LABS Laboratory Tests 2 10/08/18 11:46: Bedside Glucose (Misc Panel) 163H 10/08/18 16:51: Bedside Glucose (Misc Panel) 180H 10/08/18 20:02: Bedside Glucose (Misc Panel) 201H 10/09/18 06:11: Anion Gap 7L, Glomerular Filtration Rate 56.6, Blood Urea Nitrogen 15, Creatinine 1.31H, Sodium Level 141, Potassium Level 3.6, Chloride Level 107, Carbon Dioxide Level 27, Calcium Level 8.7L CBC/BMP Laboratory Tests 10/08/18 12:09 10/08/18 17:58 10/09/18 06:11 Calcium Level 8.7 L NORMA TILLMAN MD Oct 09, 2018 10:14
[2018-10-09 12:25] LABS: BLOOD UREA NITROGEN 13 MG/DL (7-18); CALCIUM LEVEL 8.6 MG/DL (8.8-10.2); CARBON DIOXIDE LEVEL 27 MEQ/L (21-32); CHLORIDE LEVEL 109 MEQ/L (98-107); CREATININE FOR GFR 1.22 MG/DL (0.70-1.30); GLOMERULAR FILTRATION RATE > 60.0 (>42); GLUCOSE, FASTING 162 MG/DL (70-100); POTASSIUM SERUM 3.5 MEQ/L (3.5-5.1); SODIUM LEVEL 144 MEQ/L (136-145)
[2018-10-09 13:35] VITALS: BP 132/75
[2018-10-09] MEDS: NS 1,000 ML IV SCH (15:59)
[2018-10-09 18:58] LABS: BLOOD UREA NITROGEN 13 MG/DL (7-18); CALCIUM LEVEL 8.4 MG/DL (8.8-10.2); CARBON DIOXIDE LEVEL 25 MEQ/L (21-32); CHLORIDE LEVEL 109 MEQ/L (98-107); CREATININE FOR GFR 1.11 MG/DL (0.70-1.30); GLOMERULAR FILTRATION RATE > 60.0 (>42); GLUCOSE, FASTING 166 MG/DL (70-100); POTASSIUM SERUM 3.3 MEQ/L (3.5-5.1); SODIUM LEVEL 142 MEQ/L (136-145)
[2018-10-09 22:00] VITALS: BP 146/75
[2018-10-10 00:12] LABS: BLOOD UREA NITROGEN 13 MG/DL (7-18); CALCIUM LEVEL 8.6 MG/DL (8.8-10.2); CARBON DIOXIDE LEVEL 26 MEQ/L (21-32); CHLORIDE LEVEL 109 MEQ/L (98-107); CREATININE FOR GFR 1.11 MG/DL (0.70-1.30); GLOMERULAR FILTRATION RATE > 60.0 (>42); GLUCOSE, FASTING 177 MG/DL (70-100); SODIUM LEVEL 143 MEQ/L (136-145)
[2018-10-10] MEDS: NS 1,000 ML IV SCH (02:21)
[2018-10-10] MEDS: PIPERACILLIN/TAZOBACTAM SOD 3.375 GM in D5W MINI-BAG PLUS 50 ML IV SCH ×3 (02:21→08:47)
[2018-10-10 06:00] VITALS: BP 136/78
[2018-10-10 06:14] LABS: BLOOD UREA NITROGEN 14 MG/DL (7-18); CALCIUM LEVEL 8.5 MG/DL (8.8-10.2); CARBON DIOXIDE LEVEL 25 MEQ/L (21-32); CHLORIDE LEVEL 111 MEQ/L (98-107); CREATININE FOR GFR 1.16 MG/DL (0.70-1.30); GLOMERULAR FILTRATION RATE > 60.0 (>42); GLUCOSE, FASTING 208 MG/DL (70-100); POTASSIUM SERUM 3.3 MEQ/L (3.5-5.1); SODIUM LEVEL 143 MEQ/L (136-145)
[2018-10-10 08:30] VITALS: BP 121/61
[2018-10-10] MEDS: OMEPRAZOLE 20 MG CAP PO SCH (08:30)
[2018-10-10] MEDS: ATENOLOL 25 MG TAB PO SCH (08:30)
[2018-10-10] MEDS: HumaLOG INSULIN (NovoLOG) PER UNIT SC SCH (08:30)
[2018-10-10] MEDS: risperiDONE 3 MG TAB PO SCH (08:30)
[2018-10-10] MEDS: ATORVASTATIN 20 MG TAB PO SCH (08:30)
[2018-10-10] MEDS: TAMSULOSIN 0.4 MG CAP PO SCH (08:31)
--- NOTE | 2018-10-10 09:01 | REP ---
Clinical: Shortness of breath. Comparison: 03/11/2018. 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 Left lower lobe consolidation with associated pleural reaction identified which is similar to prior examination. No further acute process appreciated. No pneumothorax. Skeletal structures stable. Impression: Left lower lobe infiltrate and pleural reaction may represent acute on chronic findings. Electronically Signed by Clay Jordan MD 10/10/2018 08:52 A
--- NOTE | 2018-10-10 20:55 | DS.PDOC ---
Discharge Summary General Date of Admission Oct 05, 2018 at 20:28 Date of Discharge 10/10/18 Discharge Summary PROCEDURES PERFORMED DURING STAY: None FREELANCE DIRECTOR: UROLOGY-DR. PATRICIA DISCHARGE DIAGNOSES: Acute blood loss anemia Gross Hematuria in the setting of chronic coumadin Coumadin-induced coagulopathy Chronic Atrial Fibrillation s/p chronic warfarin Urine retention with suprapubic indwelling catheter DM HTN Acute Kidney Injury Severe Dementia Abnormal CXR: Left basilar pleural reaction vs infiltrate HOSPITAL COURSE: The patient is a 78-year-old white male with multiple chronic medical conditions, including dementia, presented to the hospital for evaluation of the hematuria. Patient cannot provide any information since he is demented. The provided history, and she was in the hospital with the patient. Per the , patient had a suprapubic Hathaway catheter inserted back to January 2018 due to urine retention. Since then, he is doing fine. Yesterday, Dr. Patricia replaced his suprapubic catheter in the abdomen. Initially, had some bleeding from the new catheter, but the family was told by Dr. Patricia that was normal when you replace the new one. However, the hematuria is becoming more severe and so the patient was brought to the emergency room (ER) for further evaluation. In the ER, his initial workup was not significant except INR was up to 3.43 and also his creatinine is up to 1.79. Medicine service called for admission. Dr. Patricia was consulted. HOSPITAL COURSE: Gross hematuria in the setting of chronic warfarin for Afib was admitted to the medical/surgical floor, Coumadin and aspirin WERE HELD due to hematuria. He was given vitamin K as well as fresh frozen plasma (FFP) in the ER. Also, on IV antibiotics for possible urinary tract infection. hold warfarin for one week. Acute blood loss anemia due to gross hematuria with worsening anemia most likely hemodilutional. pt is unable to provide any review of systems due to severe dementia. Hgb remained stable and pt did not need rbc transfusion. hold warfarin for one week. Urine retention with chronic suprapubic Hathaway catheter. urology Dr. Patricia consulted. outpt fu after hospital discharge. hold warfarin x 1wk. Hypercoagulopathy due to Coumadin. INR was 3.43. hold coumadin for [address] patricia. Type 2 diabetes. will hold his glipizide as well as the metformin and instead will start him on insulin sliding sc Hypertension. Severe dementia. Chronic atrial fibrillation, s/p Coumadin. rate controlled. due to acute gross hematuria, coumadin to be held for one week. Acute renal injury and dehydration. normal saline due to acute renal injury and dehydration. improving with adequate urine output and no signs of fluid overload. Abnormal Chest Xray no clinical symptoms. no fever, chills, cough, sob, or sputum production. no empiric antibiotics until clinical symptoms arise. DVT PROPHYLAXIS: Due to hematuria,on sequential compression socks for deep venous thrombosis (DVT) prophylaxis. DISCHARGE PHYSICAL EXAMINATION: VITAL SIGNS:PLS SEE BELOW GENERAL: No respiratory distress. HEENT: Atraumatic. Pupils equal, round, reactive to light. No jaundice. Extraocular muscles intact. Ears, nose, throat are normal. Mouth mucosa little bit dry. NECK: No jugular venous distention (JVD) or bruits. LUNGS: clear upper lobes. diminished lower lobes. No wheezing. No crackles. HEART: S1, S2, irregular but not tachycardic. No murmur. ABDOMEN: Soft. Bowel sounds positive. Nontender. He has a suprapubic catheter placed. LOWER EXTREMITIES: No edema in bilateral lower extremities. NEUROLOGICAL: Nonfocal. SKIN: No rash. PSYCHOLOGICAL: No acute psychosis, but dementia. DIAGNOSTIC LAB STUDIES:PLS SEE BELOW TIME SPENT ON DISCHARGE: 30 MIN. Vital Signs/I&Os Vital Signs Date Time Temp Pulse Resp B/P (MAP) Pulse Ox O2 Delivery O2 Flow Rate FiO2 10/10/18 08:30 75 121/61 10/10/18 06:00 98.6 20 93 10/05/18 22:32 Room Air I&O- Last 24 Hours up to 6 AM 10/10/18 06:00 Intake Total 4250 ml Output Total 950 ml Balance 3300 ml Laboratory Data Labs 24H Laboratory Tests 2 10/09/18 23:43: Anion Gap 8, Glomerular Filtration Rate > 60.0, Blood Urea Nitrogen 13, Creatinine 1.11, Sodium Level 143, Potassium Level 3.0L, Chloride Level 109H, Carbon Dioxide Level 26, Calcium Level 8.6L 10/10/18 05:26: Anion Gap 7L, Glomerular Filtration Rate > 60.0, Blood Urea Nitrogen 14, Creatinine 1.16, Sodium Level 143, Potassium Level 3.3L, Chloride Level 111H, Carbon Dioxide Level 25, Calcium Level 8.5L CBC/BMP Laboratory Tests 10/09/18 23:43 Calcium Level 8.6 L 10/10/18 05:26 Calcium Level 8.5 L Discharge Medications Scheduled (Multivitamins) 1 Cap Cap, 1 TAB PO DAILY, (Reported) Atenolol (Atenolol) 25 Mg Tab, 75 MG PO BID, (Reported) Atorvastatin Calcium (Lipitor) 20 Mg Tab, 20 MG PO DAILY, (Reported) Cephalexin Monohydrate (Cephalexin) 500 Mg Cap, 500 MG PO BID, (Reported) PATIENT PICKED UP FROM PHARMACY BUT HAS NOT STARTED YET. WAS SUPPOSED TO TAKE 1 CAPSULE BID X 3 DAYS. Furosemide (Lasix) 40 Mg Tab, 40 MG PO DAILY, (Reported) Glipizide (Glipizide) 5 Mg Tab, 5 MG PO DAILY, (Reported) Metformin Hydrochloride (Metformin Hydrochloride) 500 Mg Tab, 500 MG PO DAILY, (Reported) Omeprazole (Cvs Omeprazole) 20 Mg Tab, 20 MG PO DAILY, (Reported) Potassium Chloride (K-Tab) 20 Meq Tab, 20 MEQ PO DAILY, (Reported) Risperidone (Risperdal) 3 Mg Tab, 3 MG PO DAILY, (Reported) Tamsulosin Hydrochloride (Flomax) 0.4 Mg Cap, 0.4 MG PO DAILY, (Reported) Allergies Coded Allergies: No Known Drug Allergy (Verified Allergy, Unknown, 08/22/18) NORMA TILLMAN MD Oct 10, 2018 20:46
== END 2018-10-10 12:15 | disposition home health service (06) | DRG 813 ==
LOC: EDBD 18:01 → M ED 18:01 → M ED INP 20:28 → M MS5PR 22:40
PROVIDERS: ADMIT Hospitalist; ATTEND General Practice
PROC: 30233K1 Transfusion of Nonautologous Frozen Plasma into Peripheral Vein, Percutaneous Approach (ICD-10-PCS; principal; 2018-10-05)
DX: D68.32 Hemorrhagic disorder due to extrinsic circulating anticoagulants (principal); N17.9 Acute kidney failure, unspecified; D62 Acute posthemorrhagic anemia; R31.0 Gross hematuria; E11.9 Type 2 diabetes mellitus without complications; I11.0 Hypertensive heart disease with heart failure; I48.2 Chronic atrial fibrillation; Z66 Do not resuscitate; Z79.01 Long term (current) use of anticoagulants; R33.9 Retention of urine, unspecified; F03.90 Unspecified dementia, unspecified severity, without behavioral disturbance, psychotic disturbance, mood disturbance, and anxiety; E86.0 Dehydration; Z79.899 Other long term (current) drug therapy; F20.9 Schizophrenia, unspecified; I25.10 Atherosclerotic heart disease of native coronary artery without angina pectoris; Z95.1 Presence of aortocoronary bypass graft; E78.5 Hyperlipidemia, unspecified; I50.9 Heart failure, unspecified; Z79.82 Long term (current) use of aspirin; T45.515A Adverse effect of anticoagulants, initial encounter

== ENCOUNTER → 2018-10-24 | Outpatient (REF) | payer MEDICARE, MEDICAID ==
[~2018-10-24] MED LIST changes: +CEPH500C PO
[2018-10-24 14:22] LABS: INR 1.65; PROTHROMBIN TIME 19.8 SECONDS (12.1-14.4)
== END ==
LOC: M SHH 13:21
PROVIDERS: ATTEND Physician Assistant
DX: I48.91 Unspecified atrial fibrillation (principal); I48.92 Unspecified atrial flutter

== ENCOUNTER → 2018-11-07 | Outpatient (REF) | payer MEDICARE, MEDICAID ==
[2018-11-07 17:11] LABS: INR 2.69; PROTHROMBIN TIME 29.1 SECONDS (12.1-14.4)
== END ==
LOC: M SHH 16:29
PROVIDERS: ATTEND Physician Assistant
DX: I48.91 Unspecified atrial fibrillation (principal); I48.92 Unspecified atrial flutter

== ENCOUNTER → 2018-12-05 | Outpatient (REF) | payer MEDICARE, MEDICAID ==
[~2018-12-05] MED LIST changes: -/HALO5TAB OR; -/WARF3TA OR; -/WARF5TA; -/WARF5TA OR; -/WARF5TA PO; +COUM1TAB17; +COUM1TAB17 OR; +COUM1TAB17 PO; +COUM1TAB19 OR; -CVS20TAB PO; +HALO1TAB21 OR; +OMEP20TA9 PO
[2018-12-05 11:40] LABS: INR 3.45; PROTHROMBIN TIME 35.5 SECONDS (12.1-14.4)
== END ==
LOC: M SHH 11:16
PROVIDERS: ATTEND Physician Assistant
DX: I48.91 Unspecified atrial fibrillation (principal); I48.92 Unspecified atrial flutter

== ENCOUNTER → 2018-12-19 | Outpatient (REF) | payer MEDICARE, MEDICAID ==
[2018-12-19 13:09] LABS: INR 2.96; PROTHROMBIN TIME 31.5 SECONDS (12.1-14.4)
== END ==
LOC: M SHH 12:14 → M LAB REF 12:14
PROVIDERS: ATTEND Physician Assistant
DX: I48.91 Unspecified atrial fibrillation (principal); I48.92 Unspecified atrial flutter

== ENCOUNTER → 2019-01-02 | Outpatient (REF) | payer MEDICARE, MEDICAID ==
[2019-01-02 14:49] LABS: APPEARANCE, URINE CLEAR (CLEAR); BACTERIA, URINE AUTO NEGATIVE (NEGATIVE); BILIRUBIN, URINE AUTO NEGATIVE (NEGATIVE); BLOOD, URINE BLOOD 2+ (NEGATIVE); COLOR, URINE STRAW (YELLOW); GLUCOSE, URINE (UA) AUTO NEGATIVE (NEGATIVE); KETONE, URINE AUTO NEGATIVE (NEGATIVE); LEUKOCYTE ESTERASE, URINE AUTO 3+ (NEGATIVE); NITRITE, URINE AUTO NEGATIVE (NEGATIVE); PROTEIN, URINE AUTO NEGATIVE (NEGATIVE); RBC, URINE AUTO 1 /HPF (0-3); SPECIFIC GRAVITY URINE AUTO 1.003 (1.002-1.035); SQUAMOUS EPITHELIAL CELL UR AU 0 /HPF (0-6); UROBILINOGEN, URINE AUTO 0.2 mg/dL (0.0-2.0); WBC, URINE AUTO 7 /HPF (0-3)
== END ==
LOC: M SMT 14:16
PROVIDERS: ATTEND Nurse Practitioner Family
DX: R82.90 Unspecified abnormal findings in urine (principal)

== ENCOUNTER → 2019-01-31 | Outpatient (REF) | payer MEDICARE, MEDICAID ==
[~2019-01-31] MED LIST changes: -TRAZ-160 PO; +TRAZ-252 PO
[2019-01-31 15:15] LABS: INR 3.09; PROTHROMBIN TIME 32.6 SECONDS (12.1-14.4)
== END ==
LOC: M SHH 14:50
PROVIDERS: ATTEND Physician Assistant
DX: I48.91 Unspecified atrial fibrillation (principal); I48.92 Unspecified atrial flutter

== ENCOUNTER → 2019-02-20 | Outpatient (REF) | payer MEDICARE, MEDICAID ==
[2019-02-20 16:31] LABS: INR 2.97; PROTHROMBIN TIME 30.8 SECONDS (11.8-14.0)
== END ==
LOC: M SHH 15:28
PROVIDERS: ATTEND Physician Assistant
DX: I48.92 Unspecified atrial flutter (principal); I48.91 Unspecified atrial fibrillation

== ENCOUNTER → 2019-03-27 | Outpatient (REF) | payer MEDICARE, MEDICAID ==
[2019-03-27 17:52] LABS: INR 4.05; PROTHROMBIN TIME 39.5 SECONDS (11.8-14.0)
== END ==
LOC: M SHH 16:34
PROVIDERS: ATTEND Physician Assistant
DX: I48.91 Unspecified atrial fibrillation (principal); I48.92 Unspecified atrial flutter

== ENCOUNTER → 2019-04-10 | Outpatient (REF) | payer MEDICARE, MEDICAID ==
[2019-04-10 16:12] LABS: INR 2.28; PROTHROMBIN TIME 24.9 SECONDS (11.8-14.0)
== END ==
LOC: M SHH 15:32
PROVIDERS: ATTEND Physician Assistant
DX: I48.91 Unspecified atrial fibrillation (principal); I48.92 Unspecified atrial flutter

== ENCOUNTER → 2019-04-24 | Outpatient (REF) | payer MEDICARE, MEDICAID ==
[2019-04-24 18:01] LABS: INR 2.96; PROTHROMBIN TIME 30.7 SECONDS (11.8-14.0)
== END ==
LOC: M SHH 16:23
PROVIDERS: ATTEND Physician Assistant
DX: I48.91 Unspecified atrial fibrillation (principal); I48.92 Unspecified atrial flutter

== ENCOUNTER → 2019-05-24 | Outpatient (REF) | payer MEDICARE, MEDICAID ==
[2019-05-24 14:36] LABS: INR 2.93; PROTHROMBIN TIME 30.5 SECONDS (11.8-14.0)
== END ==
LOC: M LAB REF 14:16
PROVIDERS: ATTEND Physician Assistant
DX: I48.91 Unspecified atrial fibrillation (principal); I48.92 Unspecified atrial flutter

== ENCOUNTER → 2019-06-21 | Outpatient (REF) | payer MEDICARE, MEDICAID ==
[2019-06-21 17:35] LABS: INR 3.08; PROTHROMBIN TIME 31.7 SECONDS (11.8-14.0)
== END ==
LOC: M LAB REF 16:35 → M SHH 16:35
PROVIDERS: ATTEND Physician Assistant
DX: I48.91 Unspecified atrial fibrillation (principal); I48.92 Unspecified atrial flutter

== ENCOUNTER → 2019-07-20 | Outpatient (REF) | payer MEDICARE, MEDICAID ==
[2019-07-20 14:02] LABS: INR 2.06
== END ==
LOC: M SHH 13:31
PROVIDERS: ATTEND Physician Assistant
DX: I48.91 Unspecified atrial fibrillation (principal); I48.92 Unspecified atrial flutter

== ENCOUNTER → 2019-08-23 | Outpatient (REF) | payer MEDICARE, MEDICAID ==
[2019-08-23 13:13] LABS: INR 2.44; PROTHROMBIN TIME 26.3 SECONDS (11.8-14.0)
== END ==
LOC: M LAB REF 12:13 → M SHH 12:13
PROVIDERS: ATTEND Physician Assistant
DX: I48.92 Unspecified atrial flutter (principal); I48.91 Unspecified atrial fibrillation

== ENCOUNTER → 2019-09-27 | Outpatient (REF) | payer MEDICARE, MEDICAID ==
[2019-09-27 13:19] LABS: INR 2.46; PROTHROMBIN TIME 26.5 SECONDS (11.8-14.0)
== END ==
LOC: M SHH 12:22
PROVIDERS: ATTEND Physician Assistant
DX: I48.91 Unspecified atrial fibrillation (principal); I48.92 Unspecified atrial flutter

== ENCOUNTER → 2019-10-25 | Outpatient (REF) | payer MEDICARE, MEDICAID ==
[2019-10-25 14:40] LABS: INR 2.37; PROTHROMBIN TIME 25.8 SECONDS (11.8-14.0)
== END ==
LOC: M SHH 13:07
PROVIDERS: ATTEND Physician Assistant
DX: I48.92 Unspecified atrial flutter (principal); I48.91 Unspecified atrial fibrillation

== ENCOUNTER 2019-11-07 04:57 | Inpatient (IN) | payer MEDICARE, MEDICAID ==
[~2019-11-07] VITALS: Ht 180.3 cm; Wt 94.8 kg
[2019-11-07] MEDS ORDERED: PIPERACILLIN/TAZOBACTAM SOD 3.375 GM in D5W MINI-BAG PLUS 50 ML IV ONE (05:15)
[2019-11-07] MEDS ORDERED: ACETAMINOPHEN 650 MG SUPP PR ONE (05:15)
[2019-11-07] MEDS ORDERED: NS 1,000 ML IV ONE ×3 (05:15→06:45)
[2019-11-07] MEDS ORDERED: NOREPINEPHRINE BITARTRATE 8 MG in D5W 492 ML IV SCH (05:30)
[2019-11-07 05:32] LABS: BASO % 0.3 % (0.0-1.0); HEMATOCRIT 37.5 % (42.0-52.0); HEMOGLOBIN 12.1 g/dl (13.5-17.5); LYMPH # 0.9 10^3/uL (1.5-5.0); LYMPH % 7.9 % (24.0-44.0); MEAN CORPUSCULAR HEMOGLOBIN 28.7 pg (27.0-33.0); MEAN CORPUSCULAR HGB CONC 32.3 g/dl (32.0-36.5); MEAN CORPUSCULAR VOLUME 89.1 fl (80.0-96.0); MONO # 1.1 10^3/uL (0.0-0.8); MONO % 10.1 % (0.0-5.0); NEUTROPHILS # 8.9 10^3/uL (1.5-8.5); NEUTROPHILS % 80.9 % (36.0-66.0); PLATELET COUNT, AUTOMATED 137 10^3/uL (150-450); RED BLOOD COUNT 4.21 10^6/uL (4.30-6.10)
--- NOTE | 2019-11-07 05:48 | ECGEPIP ---
[facility] - ED Test Date: 2019-11-07 Pat Name: EMIL ANDRADE Department: Room: - Gender: Male Manager Transportation: sb : [id number] Requested By: CHARLIE Gaitan Order Number: [id number] Reading MD: Aniket Sharma Measurements Intervals [place] Rate: 114 P: MS: 0 QRS: 82 QRSD: 104 T: 0 QT: 334 QTc: 461 Interpretive Statements ATRIAL FIBRILLATION WITH RAPID VENTRICULAR RESPONSE SIMILAR TO 03/07/18 Electronically Signed on 11-07-2019 5:48:04 EDT by Aniket Sharma
[2019-11-07 05:53] LABS: ALBUMIN 2.9 GM/DL (3.2-5.2); ALT/SGPT 18 U/L (12-78); BILIRUBIN,DIRECT 0.2 MG/DL (0.0-0.2); BILIRUBIN,TOTAL 0.6 MG/DL (0.2-1.0); BLOOD UREA NITROGEN 22 MG/DL (7-18); CALCIUM LEVEL 9.1 MG/DL (8.8-10.2); CARBON DIOXIDE LEVEL 23 MEQ/L (21-32); CHLORIDE LEVEL 102 MEQ/L (98-107); CK-MB VALUE MASS < 1.0 NG/ML (<3.6); CPK CREATINE PHOSPHOKINASE 104 U/L (39-308); CREATININE FOR GFR 1.75 MG/DL (0.70-1.30); GLOMERULAR FILTRATION RATE 40.4 (>42); GLUCOSE, FASTING 175 MG/DL (70-100); MB/CK RELATIVE INDEX 0.96 (< OR =4); NT-PRO BNP 3629 PG/ML (<450); POTASSIUM SERUM 3.1 MEQ/L (3.5-5.1); SODIUM LEVEL 140 MEQ/L (136-145); TROPONIN I < 0.02 NG/ML (< 0.10)
[2019-11-07] MEDS ORDERED: POTA20TA6 PO (06:20)
[2019-11-07] MEDS ORDERED: NYST1POW9 TOP (06:20)
[2019-11-07] MEDS ORDERED: ASPI-161 PO (06:20)
[2019-11-07] MEDS ORDERED: VITMTA PO (06:20)
[2019-11-07] MEDS ORDERED: WARF-60 PO (06:20)
[2019-11-07] MEDS ORDERED: ATEN50TA2 PO (06:20)
[2019-11-07] MEDS ORDERED: WARF-20 PO (06:20)
[2019-11-07] MEDS ORDERED: OMEP1CAP73 PO (06:20)
--- NOTE | 2019-11-07 08:04 | REP ---
Clinical: Cough and dyspnea. Comparison: 10/10/2018. Findings: Mediastinum and cardiac silhouette are stable. Evidence of prior sternotomy, CABG, and cardiac valve repair. Lung lyn demonstrate chronic changes. Trace left basilar atelectasis is improved compared to prior examination. Impression: Trace left basilar atelectasis improved from prior examination. Electronically Signed by Clay Jordan MD 11/07/2019 07:56 A
--- NOTE | 2019-11-07 08:05 | HPEPDOC ---
[facility] Medical History & Physical Date of Admission Nov 07, 2019 Date of Service: Nov 07, 2019 Attending Physician: MOSES GUERRERO MD History and Physical CHIEF COMPLAINT: Unresponsive HISTORY OF PRESENT ILLNESS: 79-year-old male with past medical history of dementia, diabetes mellitus, coronary artery disease status post CABG, hypertension, and atrial fibrillation on Coumadin, presents from home with increased lethargy. As per , patient usually sleeps most of the day secondary to dementia, but had been increasingly lethargic and unresponsive. He was febrile at home, which is why she brought him to the hospital. In the ED was found to be severely hypotensive and minimally responsive. Patient's labs, blood work and urine sample consistent with septic shock. Patient was started on levo phed, received fluid bolus and antibiotics. Patient's declined central line placement and is leaning towards comfort measures only, but she wishes to wait for the patient's sister to arrive. She would like to continue the IV fluids and vasopressors for now in an attempt to keep him alive for his sister to say goodbye. PAST MEDICAL HISTORY: 1. Dementia. 2. Diabetes mellitus. 3. Coronary artery disease. 4. Atrial fibrillation 5. Hypertension PAST SURGICAL HISTORY: 1. CABG. SOCIAL HISTORY: Unable to obtain FAMILY HISTORY: Unable to obtain ALLERGIES: Please see below. REVIEW OF SYSTEMS: Unable to perform HOME MEDICATIONS: Please see below. PHYSICAL EXAMINATION: VITAL SIGNS: Please see below. GENERAL: Lethargic, minimally responsive HEENT: Dry mucous membranes CARDIOVASCULAR EXAMINATION: S1, S2, tachycardic RESPIRATORY EXAMINATION: Scattered rhonchi, no wheezing ABDOMINAL EXAMINATION: Soft, nondistended EXTREMITIES: Not moving any extremities NEUROLOGICAL EXAMINATION: Minimally responsive to tactile and noxious stimuli LABORATORY DATA: See below. IMAGING: Chest x-ray without acute pathology MICROBIOLOGY: Please see below. ASSESSMENT: 79-year-old male with multiple medical comorbidities being admitted for septic shock secondary to UTI. PLAN: 1. Septic shock. Likely secondary to UTI, is planning comfort measures only, but wishes to wait for his sister to arrive, would like to continue Levophed and IV fluids until then, sister should be here in a few hours. DNR/DNI signed, no further/aggressive management for now. 2. Multiple medical comorbidities. We'll hold off on all medications as patient will be made comfort measures only later today. Vital Signs Vital Signs Date Time Temp Pulse Resp B/P (MAP) Pulse Ox O2 Delivery O2 Flow Rate FiO2 11/07/19 07:06 104.0 11/07/19 07:05 73/42 (52) 11/07/19 06:57 103 20 100 Nasal Cannula 6.0 Laboratory Data Labs 24H Laboratory Tests 2 11/07/19 05:16: Immature Granulocyte % (Auto) 0.8, Neutrophils (%) (Auto) 80.9H, Lymphocytes (%) (Auto) 7.9L, Monocytes (%) (Auto) 10.1H, Eosinophils (%) (Auto) 0.0, Basophils (%) (Auto) 0.3, Neutrophils # (Auto) 8.9H, Lymphocytes # (Auto) 0.9L, Monocytes # (Auto) 1.1H, Eosinophils # (Auto) 0.0, Basophils # (Auto) 0.0, Nucleated Red Blood Cells % (auto) 0.0, Urine Color TALIB, Urine Appearance TURBIDH, Urine pH 5.0, Urine Specific [place] 1.018, Urine Protein 1+H, Urine Glucose (UA) NEGATIVE, Urine Ketones 1+H, Urine Blood 3+H, Urine Nitrite POSITIVEH, Urine Bilirubin NEGATIVE, Urine Urobilinogen 0.2, Urine Leukocyte Esterase 3+H, Urine WBC (Auto) TNTCH, Urine RBC (Auto) 176H, Urine Hyaline Casts (Auto) 23, Urine Bacteria (Auto) 3+H, Urine Squamous Epithelial Cells 0, Urine Amorphous Sediment SMALLH, Urine Mucus (Auto) LARGE, Urine Sperm (Auto) , Anion Gap 15, Glomerular Filtration Rate 40.4L, Lactic Acid Level 6.5*H, Calcium Level 9.1, Total Bilirubin 0.6, Direct Bilirubin 0.2, Aspartate Amino Transf (AST/SGOT) 20, Alanine Aminotransferase (ALT/SGPT) 18, Alkaline Phosphatase 77, Total Creatine Kinase 104, Creatine Kinase MB < 1.0, Creatine Kinase MB Relative Index 0.96, Troponin I < 0.02, PE-Xso-[id number]-Type Natriuretic Peptide 3629H, Total Protein 7.0, Albumin 2.9L, Albumin/Globulin Ratio 0.71L 11/07/19 05:17: POC pH (Misc Panel) 7.467H, POC Base Excess (Misc Panel) -3.0L, POC Saturated Percent O2 (Misc) 97, POC pO2 (Misc Panel) 81.0, POC pCO2 (Misc Panel) 28.3L, POC HCO3 (Misc Panel) 20.4L, POC Total CO2 (Misc Panel) 21.0L CBC/BMP Laboratory Tests 11/07/19 05:16 Microbiology Microbiology 11/07/19 Blood Culture, Received Pending 11/07/19 Urine Culture, Received Pending 11/07/19 Respiratory Virus Panel (PCR) ([facility]) - Final, Complete 11/07/19 Blood Culture, Received Pending Home Medications Scheduled Aspirin (Aspirin EC) 81 Mg Tablet.dr, 81 MG PO DAILY Atenolol (Atenolol) 50 Mg Tablet, 75 MG PO BID Atorvastatin Calcium (Lipitor) 20 Mg Tab, 20 MG PO QHS Furosemide (Lasix) 40 Mg Tab, 40 MG PO DAILY Metformin HCl (Metformin HCl) 500 Mg Tab, 500 MG PO BID Multivitamins (Thera M Plus Tablet) 1 Each Tablet, 1 TAB PO QHS Omeprazole (Omeprazole) 20 Mg Capsule.dr, 20 MG PO DAILY Potassium Chloride (Potassium Chloride) 20 Meq Tab.er.prt, 20 MEQ PO DAILY Risperidone (Risperdal) 3 Mg Tab, 3 MG PO DAILY Tamsulosin HCl (Flomax) 0.4 Mg Cap, 0.4 MG PO DAILY Warfarin Sodium (Warfarin Sodium) 4 Mg Tablet, 4 MG PO 3XW WEDNESDAY, WEDNESDAY AND WEDNESDAY AT QHS Warfarin Sodium (Warfarin Sodium) 6 Mg Tablet, 6 MG PO 4XWK WEDNESDAY, WEDNESDAY, WEDNESDAY AND WEDNESDAY AT QHS Scheduled PRN Nystatin (Nystatin Powder) 15 Gm Powder, 1 DOSE TOP BID PRN for RASH USES ON GROIN AREA NEEDED FOR RASH Allergies Coded Allergies: No Known Allergies (Unverified , 11/07/19) A-FIB/CHADSVASC A-FIB History Current/History of A-Fib/PAF?: Yes Current PO Anticoag Therapy: Yes MOSES GUERRERO MD Nov 07, 2019 08:05
[2019-11-07 10:21] VITALS: BP 91/63
[2019-11-07] MEDS: MORPHINE 2 MG/ML 1ML VIAL (J2270) IV PRN ×2 (15:41→23:59)
[2019-11-07] MEDS: SCOPOLAMINE 1MG TRANSDERMAL PATCH TOP SCH (15:42)
--- NOTE | 2019-11-08 21:33 | IPNPDOC ---
Date Seen The patient was seen on 11/08/19. 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 VS, I&O, 24H, Fishbone Vital Signs/I&O Vital Signs Date Time Temp Pulse Resp B/P (MAP) Pulse Ox O2 Delivery O2 Flow Rate FiO2 11/08/19 00:21 22 Room Air 11/07/19 11:22 2.0 11/07/19 10:40 121 97 11/07/19 10:21 91/63 (72) 11/07/19 08:28 104.0 I&O- Last 24 Hours up to 6 AM 11/08/19 06:00 Intake Total 3325 ml Output Total 150 ml Balance 3175 ml Laboratory Data Microbiology Microbiology 11/07/19 Blood Culture - Preliminary, Resulted Staphylococcus Aureus 11/07/19 Urine Culture, Received Pending 11/07/19 Respiratory Virus Panel (PCR) ([facility]) - Final, Complete 11/07/19 Blood Culture - Preliminary, Resulted Staphylococcus Aureus MOSES GUERRERO MD Nov 08, 2019 21:33
[2019-11-09] MEDS: MORPHINE 2 MG/ML 1ML VIAL (J2270) IV PRN ×4 (15:34→21:55)
[2019-11-10] MEDS: SCOPOLAMINE 1MG TRANSDERMAL PATCH TOP SCH (09:00)
--- NOTE | 2019-11-10 10:42 | DS.PDOC ---
Discharge Summary General Date of Admission Nov 07, 2019 at 07:51 Date of Discharge 11/10/19 Attending Physician: MSOES GUERRERO MD Discharge Summary PROCEDURES PERFORMED DURING STAY: None. ADMITTING DIAGNOSES: 1. Septic shock, MSSA bacteremia, UTI, acute kidney injury, chronic atrial fibrillation, acute hypoxemic respiratory failure. DISCHARGE DIAGNOSES: 1. Septic shock, MSSA bacteremia, UTI, acute kidney injury, chronic atrial fibrillation, acute hypoxemic respiratory failure. COMPLICATIONS/CHIEF COMPLAINT: Septic Shock. HISTORY OF PRESENT ILLNESS: 79-year-old male with multiple medical comorbidities, was admitted for septic shock secondary to bacteremia and UTI. Patient was significantly hypotensive and profoundly lethargic at the time of presentation. He was profoundly hypotensive despite fluid resuscitation and placed on high-dose Levophed. After discussing goals of care with and son at bedside, it was decided to withdraw all care and make the patient comfort measures only given his prognosis and baseline health. Patient was made comfort measures only on 11/07/2019, patient was comfortable during his stay, treated symptomatically, on 11/10/2019 at 8:45 AM. HOSPITAL COURSE: As above. DISPOSITION: [place]. TIME SPENT ON DISCHARGE: Greater than 10 minutes. Vital Signs/I&Os Vital Signs Date Time Temp Pulse Resp B/P (MAP) Pulse Ox O2 Delivery O2 Flow Rate FiO2 11/08/19 00:21 22 Room Air 11/07/19 11:22 2.0 11/07/19 10:40 121 97 11/07/19 10:21 91/63 (72) 11/07/19 08:28 104.0 I&O- Last 24 Hours up to 6 AM 11/10/19 06:00 Intake Total 0 ml Output Total 550 ml Balance -550 ml Microbiology Microbiology 11/07/19 Blood Culture - Final, Complete Staphylococcus Aureus 11/07/19 Urine Culture - Final, Complete Citrobacter Freundii Klebsiella Pneumoniae Staphylococcus Aureus Enterococcus Faecalis 11/07/19 Respiratory Virus Panel (PCR) ([facility]) - Final, Complete 11/07/19 Blood Culture - Final, Complete Staphylococcus Aureus Discharge Medications Scheduled Aspirin (Aspirin EC) 81 Mg Tablet., 81 MG PO DAILY, (Reported) Atenolol (Atenolol) 50 Mg Tablet, 75 MG PO BID, (Reported) Atorvastatin Calcium (Lipitor) 20 Mg Tab, 20 MG PO QHS, (Reported) Furosemide (Lasix) 40 Mg Tab, 40 MG PO DAILY, (Reported) Metformin HCl (Metformin HCl) 500 Mg Tab, 500 MG PO BID, (Reported) Multivitamins (Thera M Plus Tablet) 1 Each Tablet, 1 TAB PO QHS, (Reported) Omeprazole (Omeprazole) 20 Mg Capsule.dr, 20 MG PO DAILY, (Reported) Potassium Chloride (Potassium Chloride) 20 Meq Tab.er.prt, 20 MEQ PO DAILY, (Reported) Risperidone (Risperdal) 3 Mg Tab, 3 MG PO DAILY, (Reported) Tamsulosin HCl (Flomax) 0.4 Mg Cap, 0.4 MG PO DAILY, (Reported) Warfarin Sodium (Warfarin Sodium) 4 Mg Tablet, 4 MG PO 3XW, (Reported) WEDNESDAY, WEDNESDAY AND WEDNESDAY AT QHS Warfarin Sodium (Warfarin Sodium) 6 Mg Tablet, 6 MG PO 4XWK, (Reported) WEDNESDAY, WEDNESDAY, WEDNESDAY AND WEDNESDAY AT QHS Scheduled PRN Nystatin (Nystatin Powder) 15 Gm Powder, 1 DOSE TOP BID PRN for RASH, (Reported) USES ON GROIN AREA NEEDED FOR RASH Allergies Coded Allergies: No Known Allergies (Unverified , 11/07/19) MOSES GUERRERO MD Nov 10, 2019 10:42
== END 2019-11-10 08:44 | disposition expired | DRG 871 ==
LOC: M ED 04:57 → M ED INP 07:51 → ENRESERVDT 08:13 → ENRESERVTM 08:13 → ENRESERVDT 10:18 → ENRESERVTM 10:18 → M MSPAV 11:08
PROVIDERS: ADMIT Internal Medicine; ATTEND Internal Medicine
DX: A41.01 Sepsis due to Methicillin susceptible Staphylococcus aureus (principal); R65.21 Severe sepsis with septic shock; J96.01 Acute respiratory failure with hypoxia; N39.0 Urinary tract infection, site not specified; I48.20 Chronic atrial fibrillation, unspecified; N17.9 Acute kidney failure, unspecified; F03.90 Unspecified dementia, unspecified severity, without behavioral disturbance, psychotic disturbance, mood disturbance, and anxiety; E11.9 Type 2 diabetes mellitus without complications; I25.10 Atherosclerotic heart disease of native coronary artery without angina pectoris; I10 Essential (primary) hypertension; Z51.5 Encounter for palliative care; Z66 Do not resuscitate; Z95.1 Presence of aortocoronary bypass graft; Z79.01 Long term (current) use of anticoagulants; Z79.82 Long term (current) use of aspirin; Z79.899 Other long term (current) drug therapy